=== PATIENT | female | born 1955 | race Hispanic/Latino ===

== ENCOUNTER 2019-05-07 11:21 | Emergency (ER) | payer SELFPAY ==
--- NOTE | 2019-05-07 12:31 | Event Note ---
ED Screening Note Date of service: 05/07/19 Time: 12:26 ED Screening Note: Pt complains of cough and shortness of breath x 1 week cough is nonproductive denies smoking +recent long car ride and right lower leg pain This initial assessment/diagnostic orders/clinical plan/treatment(s) is/are s ubject to change based on patients health status, clinical progression and re- assessment by fellow clinical providers in the ED. Further treatment and workup at subsequent clinical providers discretion. Patient/guardian urged not to elope from the ED as their condition may be serious if not clinically assessed and managed. Initial orders include: Labs CXR lactic acid
--- NOTE | 2019-05-07 15:01 | XRay Report ---
CHEST 2 VIEWS 1254 INDICATION / CLINICAL INFORMATION: cough, fever, hypoxia COMPARISON: 04/08/2012 FINDINGS: SUPPORT DEVICES: None. HEART / MEDIASTINUM: No significant abnormality. LUNGS / PLEURA: Mild diffuse increase in interstitial markings is seen which was not obvious previous ly. I suspect this is simply an interval chronic change from the prior study 7 years ago though possi samuel this could be an acute interstitial infiltrate or edema. Slight atelectasis is seen in the right base. No areas of consolidation are seen. No pleural effusions are noted. No pneumothorax. ADDITIONAL FINDINGS: No significant additional findings. IMPRESSION: Interval increase in interstitial markings as above, probably a chronic development thoug h follow-up is suggested. Signer Name: Sammy Peguero MD Signed: 05/07/2019 2:57 PM Workstation Name: [id number]
[2019-05-07] MEDS ORDERED: ACETAMINOPHEN 325 MG TAB PO ONE (15:25)
[2019-05-07 15:45] LABS: Basophils % (Auto) 0.6 % (0.0-1.8); Eosinophils % (Auto) 0.3 % (0.0-4.3); Hemoglobin 14.1 gm/dl (10.1-14.3); Lymphocytes # (Auto) 0.9 K/mm3 (1.2-5.4); Lymphocytes % (Auto) 19.1 % (13.4-35.0); Mean Corpuscular HGB Conc 33 % (30-34); Mean Corpuscular Volume 89 fl (79-97); Monocytes # (Auto) 0.7 K/mm3 (0.0-0.8); Monocytes % (Auto) 14.3 % (0.0-7.3); Platelet Count 200 K/mm3 (140-440); Red Blood Count 4.85 M/mm3 (3.65-5.03)
[2019-05-07 16:05] LABS: Albumin 3.8 g/dL (3.9-5); Calcium 8.8 mg/dL (8.4-10.2)
[2019-05-08] MEDS ORDERED: cefTRIAXone/NS 1 GM/50 ML 1 GM/50 ML BAG IV ONE (07:13)
[2019-05-08] MEDS ORDERED: ALBUTEROL 2.5 MG/3 ML NEBU IH ONE (07:14)
[2019-05-08] MEDS ORDERED: BENZONATATE 100 MG CAP PO ONE (07:14)
[2019-05-08] MEDS ORDERED: IPRATROPIUM 0.02% NEBU 2.5 ML IH ONE (07:14)
[2019-05-08] MEDS ORDERED: KETOROLAC 30 MG/1 ML INJ IV ONE (07:14)
[2019-05-08] MEDS ORDERED: methylPREDNISolone Sod Succinate 125 MG/2 ML INJ IV ONE (07:14)
[2019-05-08] MEDS ORDERED: FAMOTIDINE 20 MG/2 ML INJ IV ONE (07:14)
--- NOTE | 2019-05-08 07:34 | Emergency Department Report ---
- General Chief Complaint: Upper Respiratory Infection Stated Complaint: COUGH 1 WK Time Seen by Provider: 05/07/19 12:26 Source: patient Mode of arrival: Ambulatory Limitations: Physical Limitation - History of Present Illness Initial Comments: 63-year-old female with no significant past medical history retains a dry cough for the past one week. Patient having subjective fevers at home with shortness of breath. Complaints of chest tightness with shortness of breath and coughing positive wheezing and chest tightness reported. Patient denies recent travel, sick contacts, did not receive a flu shot this season. Patient does not smoke cigarettes. Patient had a pulse ox of 87% on room air during initial triage and complains of 7/10 chest tightness. - Related Data Previous Rx's Medication Instructions Recorded Last Taken Type Ciprofloxacin HCl [Ciprofloxacin 500 mg PO Q12HR #12 tab 05/08/19 Unknown Rx TAB] Oseltamivir [Tamiflu] 75 mg PO BID #10 capsule 05/08/19 Unknown Rx Allergies Allergy/AdvReac Type Severity Reaction Status Date / Time No Known Allergies Allergy Verified 05/07/19 19:46 ED Review of Systems ROS: Stated complaint: COUGH 1 WK Other details as noted in HPI Comment: All other systems reviewed and negative ED Past Medical Hx - Past Medical History Previous Medical History?: No - Surgical History Additional Surgical History: HYSTO - Social History Smoking Status: Never Smoker Substance Use Type: None - Medications Home Medications: Home Medications Medication Instructions Recorded Confirmed Last Taken Type Ciprofloxacin HCl [Ciprofloxacin 500 mg PO Q12HR #12 tab 05/08/19 Unknown Rx TAB] Oseltamivir [Tamiflu] 75 mg PO BID #10 capsule 05/08/19 Unknown Rx ED Physical Exam - General Limitations: Physical Limitation - Other Other exam information: General: No acute distress Head: Atraumatic Eyes: normal appearance ENT: Moist mucous membranes Neck: Normal appearance, no midline tenderness Chest: bilateral expiratory wheezing without crackles or rales CV: Regular rate and rhythm Abdomen: Soft, normal bowel sounds, nontender, nondistended, no rebound or guarding Back: Normal inspection Extremity: Normal inspection, full range of motion, no calf tenderness or leg edema Neuro: Alert O x 3, no facial asymmetry, speech clear, no gross motor sensory deficit Psych: Appropriate behavior Skin: No rash ED Course Vital Signs 05/07/19 05/07/19 05/07/19 12:26 15:26 15:36 Temperature 100 F H 100.9 F H Pulse Rate 73 88 Pulse Rate [ Right Bases] Pulse Rate [ Right Lower Lobe] Respiratory 20 18 18 Rate Respiratory Rate [Right Bases] Respiratory Rate [Right Lower Lobe] Blood Pressure 101/49 Blood Pressure 107/47 [107/47] O2 Sat by Pulse 87 100 Oximetry 05/07/19 05/08/19 05/08/19 16:36 06:31 06:54 Temperature 99.0 F 99.7 F H Pulse Rate 68 65 Pulse Rate [ Right Bases] Pulse Rate [ Right Lower Lobe] Respiratory 18 18 16 Rate Respiratory Rate [Right Bases] Respiratory Rate [Right Lower Lobe] Blood Pressure 114/73 Blood Pressure 122/61 [107/47] O2 Sat by Pulse 90 94 Oximetry 05/08/19 05/08/19 05/08/19 07:39 13:55 14:04 Temperature Pulse Rate 77 76 Pulse Rate [ 80 Right Bases] Pulse Rate [ 77 Right Lower Lobe] Respiratory 15 18 Rate Respiratory 20 Rate [Right Bases] Respiratory 18 Rate [Right Lower Lobe] Blood Pressure Blood Pressure 115/65 122/74 [107/47] O2 Sat by Pulse 91 98 Oximetry ED Medical Decision Making - Lab Data Result diagrams: 05/07/19 15:27 05/07/19 15:27 Lab Results 05/07/19 05/07/19 05/07/19 Range/Units 15:27 15:27 15:27 WBC 4.8 (4.5-11.0) K/mm3 RBC 4.85 (3.65-5.03) M/mm3 Hgb 14.1 (10.1-14.3) gm/dl Hct 43.0 H (30.3-42.9) % MCV 89 (79-97) fl MCH 29 (28-32) pg MCHC 33 (30-34) % RDW 15.0 (13.2-15.2) % Plt Count 200 (140-440) K/mm3 Lymph % (Auto) 19.1 (13.4-35.0) % [place] % (Auto) 14.3 H (0.0-7.3) % Eos % (Auto) 0.3 (0.0-4.3) % Baso % (Auto) 0.6 (0.0-1.8) % Lymph # 0.9 L (1.2-5.4) K/mm3 [place] # 0.7 (0.0-0.8) K/mm3 Eos # 0.0 (0.0-0.4) K/mm3 Baso # 0.0 (0.0-0.1) K/mm3 Seg Neutrophils % 65.7 (40.0-70.0) % Seg Neutrophils # 3.1 (1.8-7.7) K/mm3 Sodium 139 (137-145) mmol/L Potassium 3.8 (3.6-5.0) mmol/L Chloride 101.9 (98-107) mmol/L Carbon Dioxide 22 (22-30) mmol/L Anion Gap 19 mmol/L BUN 15 (7-17) mg/dL Creatinine 1.5 H (0.7-1.2) mg/dL Estimated GFR 35 ml/min BUN/Creatinine Ratio 10 % Glucose 110 H (65-100) mg/dL Lactic Acid 2.00 (0.7-2.0) mmol/L Calcium 8.8 (8.4-10.2) mg/dL Total Bilirubin 0.20 (0.1-1.2) mg/dL AST 19 (5-40) units/L ALT 9 (7-56) units/L Alkaline Phosphatase 64 (35-129) units/L Total Protein 7.0 (6.3-8.2) g/dL Albumin 3.8 L (3.9-5) g/dL Albumin/Globulin Ratio 1.2 % 05/07/ Range/Units 18:21 WBC (4.5-11.0) K/mm3 RBC (3.65-5.03) M/mm3 Hgb (10.1-14.3) gm/dl Hct (30.3-42.9) % MCV (79-97) fl MCH (28-32) pg MCHC (30-34) % RDW (13.2-15.2) % Plt Count (140-440) K/mm3 Lymph % (Auto) (13.4-35.0) % [place] % (Auto) (0.0-7.3) % Eos % (Auto) (0.0-4.3) % Baso % (Auto) (0.0-1.8) % Lymph # (1.2-5.4) K/mm3 [place] # (0.0-0.8) K/mm3 Eos # (0.0-0.4) K/mm3 Baso # (0.0-0.1) K/mm3 Seg Neutrophils % (40.0-70.0) % Seg Neutrophils # (1.8-7.7) K/mm3 Sodium (137-145) mmol/L Potassium (3.6-5.0) mmol/L Chloride (98-107) mmol/L Carbon Dioxide (22-30) mmol/L Anion Gap mmol/L BUN (7-17) mg/dL Creatinine (0.7-1.2) mg/dL Estimated GFR ml/min BUN/Creatinine Ratio % Glucose (65-100) mg/dL Lactic Acid 0.60 L (0.7-2.0) mmol/L Calcium (8.4-10.2) mg/dL Total Bilirubin (0.1-1.2) mg/dL AST (5-40) units/L ALT (7-56) units/L Alkaline Phosphatase (35-129) units/L Total Protein (6.3-8.2) g/dL Albumin (3.9-5) g/dL Albumin/Globulin Ratio % - EKG Data -: EKG Interpreted by Nm EKG shows normal: sinus rhythm, ST-T waves (no stemi) Rate: normal - EKG Data When compared to previous EKG there are: previous EKG unavailable - Radiology Data Radiology results: report reviewed CHEST 2 VIEWS 1254 INDICATION / CLINICAL INFORMATION: cough, fever, hypoxia COMPARISON: 04/08/2012 FINDINGS: SUPPORT DEVICES: None. HEART / MEDIASTINUM: No significant abnormality. LUNGS / PLEURA: Mild diffuse increase in interstitial markings is seen which was not obvious previously. I suspect this is simply an interval chronic change from the prior study 7 years ago though possibly this could be an acute interstitial infiltrate or edema. Slight atelectasis is seen in the right base. No areas of consolidation are seen. No pleural effusions are noted. No pneumothorax. ADDITIONAL FINDINGS: No significant additional findings. IMPRESSION: Interval increase in interstitial markings as above, probably a chronic development though follow-up is suggested. - Medical Decision Making tylenol given for fever Patient received DuoNeb with persistant wheezing mag/solumedrol/rocephin/azithrom to be provided toradol for pain plan to admit due to minimal improvement with meds and need for further tx hospitalist informed blood cultures pending - Differential Diagnosis viral syndrome, pneumonia, bronchitis Critical Care Time: No Critical care attestation.: If time is entered above; I have spent that time in minutes in the direct care of this critically ill patient, excluding procedure time. ED Disposition Clinical Impression: Acute bronchitis, Interstitial pneumonia, Hypoxia Disposition: OP ADMIT IP TO THIS HOSP Is pt being admited?: Yes Does the pt Need Aspirin: No Time of Disposition: 09:30 (Dr Betts/hosp)
[2019-05-08] MEDS ORDERED: MAGNESIUM SULFATE 2 GM/50 ML BAG IV ONE (07:48)
[2019-05-08] MEDS ORDERED: AZITHROMYCIN 500 MG in SODIUM CHLORIDE 0.9% 250ML 250 ML IV ONE (08:00)
[2019-05-08] MEDS ORDERED: AZITHROMYCIN 250 MG TAB PO ONE (08:43)
--- NOTE | 2019-05-08 10:51 | Event Note ---
Date: 05/08/19 63 YO female with no past medical history presents to ED for evaluation. Patient states that she has experienced a dry cough over the past week with subjective fevers at home. Patient states that she has experienced an acute worsening of symptoms over the past 24 hours and presents to ED for evaluation. Patient seen and evaluated in the emergency department and underwent influenza antigen and was found to have influenza B. Patient treated with supportive care and initiated on Tamiflu therapy as well as IV fluid resuscitation therapy and empiric antibiotic therapy. Patient medically optimized and back to usual state of health. Patient discharged home with Tamiflu therapy and prophylactic antibiotic therapy. Patient instructed to follow-up with primary care physician in 3 days if recurrent symptoms. Patient pulse oximetry on room air is 94% after removal of facemask. ED Physical Exam - General Limitations: None General: No acute distress Head: Atraumatic Eyes: normal appearance ENT: Moist mucous membranes Neck: Normal appearance, no midline tenderness Chest: CTA Bilaterally, Normal chest wall expansion, No increased inspiratory effort. CV: Regular rate and rhythm Abdomen: Soft, normal bowel sounds, nontender, nondistended, no rebound or gua rding Back: Normal inspection Extremity: Normal inspection, full range of motion, no calf tenderness or leg edema Neuro: Alert O x 3, no facial asymmetry, speech clear, no gross motor sensory deficit Psych: Appropriate behavior Skin: No rash
[2019-05-08] MEDS ORDERED: SODIUM CHLORIDE 0.9% 1000 ML 1,000 ML IV ONE (10:54)
[2019-05-08] MEDS ORDERED: PSEUDOEPHEDRINE 30 MG TAB PO ONE (11:50)
[2019-05-08] MEDS ORDERED: OSELTAMIVIR 75 MG CAP PO SCH (12:53)
[2019-05-08 15:20] VITALS: BP 121/66
== END 2019-05-08 15:08 | disposition admitted as inpatient to this hospital (09) ==
LOC: ED 11:21 → UNDOADMOB 05-08 09:31 → 3A 05-08 09:31 → ED 05-08 15:08
DX: J02.9 Acute pharyngitis, unspecified (principal); R09.02 Hypoxemia; J84.9 Interstitial pulmonary disease, unspecified
CPT/HCPCS: 36415; 71046; 80053; 82140; 85025; 87040; 87400; 93005; 93010; 94640; 96365; 96367; 96375; 99285; J0696; J1885; J2930; J3475; J7030; 94644; J0456; J7050

== ENCOUNTER 2021-09-29 14:47 | Inpatient (IN) | payer MEDICAID, MEDICARE ==
[2021-09-29] MEDS ORDERED: FUROSEMIDE 40 MG/4 ML INJ IV ONE (16:26)
--- NOTE | 2021-09-29 16:26 | Emergency Department Report ---
ED Shortness of Breath HPI - General Chief Complaint: Dyspnea/Respdistress Stated Complaint: LOW OXYGEN Time Seen by Provider: 09/29/21 15:58 Source: patient Mode of arrival: Wheelchair Limitations: No Limitations - History of Present Illness Initial Comments: Patient is a 66-year-old female presenting with complaint of shortness of breath and chest discomfort. She initially presented to the outpatient check-in area experiencing severe shortness of breath and chest pain for which a CODE BLUE was called. I arrived to find patient awake and alert however appearing severely fatigued. She was transferred to the emergency department for evaluation. States she saw her PCP Wednesday for evaluation of sciatic pain in both of her legs. She reports getting home after the visit and noticing severe swelling in her legs. States she elevated them in bed with reduction in swelling however states the symptoms worsened when she went to work today. The pain in her chest is localized to the center and described as a pressure-like sensation. The pain is nonradiating. Worsened with inhalation. She reports history of heart palpitations however denies history of CAD or CHF. MD Complaint: shortness of breath, chest pain - Related Data Previous Rx's Medication Instructions Recorded Last Taken Type Ciprofloxacin HCl [Ciprofloxacin 500 mg PO Q12HR #12 tab 05/08/19 Unknown Rx TAB] Oseltamivir [Tamiflu] 75 mg PO BID #10 capsule 05/08/19 Unknown Rx Allergies Allergy/AdvReac Type Severity Reaction Status Date / Time No Known Allergies Allergy Verified 05/07/19 19:46 ED Review of Systems ROS: Stated complaint: LOW OXYGEN Other details as noted in HPI Constitutional: denies: chills, fever Respiratory: cough, orthopnea, shortness of breath ED Past Medical Hx - Past Medical History Previous Medical History?: No - Surgical History Past Surgical History?: No Additional Surgical History: HYSTO - Social History Smoking Status: Never Smoker Substance Use Type: None - Medications Home Medications: Home Medications Medication Instructions Recorded Confirmed Last Taken Type Ciprofloxacin HCl [Ciprofloxacin 500 mg PO Q12HR #12 tab 05/08/19 Unknown Rx TAB] Oseltamivir [Tamiflu] 75 mg PO BID #10 capsule 05/08/19 Unknown Rx ED Physical Exam - General Limitations: No Limitations ED Course Vital Signs 09/29/21 14:52 Temperature 99.6 F Pulse Rate 99 H Respiratory 16 Rate Blood Pressure 158/77 [Left] O2 Sat by Pulse 83 L Oximetry Critical care attestation.: If time is entered above; I have spent that time in minutes in the direct care of this critically ill patient, excluding procedure time. ED Disposition Condition: Stable
--- NOTE | 2021-09-29 16:30 | XRay Report ---
CHEST 1 VIEW INDICATION / CLINICAL INFORMATION: Dyspnea. COMPARISON: 05/07/2019. FINDINGS: SUPPORT DEVICES: None. HEART / MEDIASTINUM: Enlarged. LUNGS / PLEURA: Moderate pulmonary vascular congestion. No focal consolidation or definite effusion. No pneumothorax. ADDITIONAL FINDINGS: No significant additional findings. IMPRESSION: Moderate CHF. Signer Name: Ottoniel Tapia MD Signed: 09/29/2021 4:25 PM Workstation Name: [id number]
--- NOTE | 2021-09-29 16:55 | Emergency Department Report ---
HPI - General Chief Complaint: Dyspnea/Respdistress Time Seen by Provider: 09/29/21 15:58 - HPI HPI: 66-year-old morbidly obese female with history of chronic tobacco abuse, patient stating she smokes approximately 1 pack of cigarettes per day, chronic edema of lower extremities times greater than 2 months per her report, hypertension, hyperlipidemia, COPD not on oxygen at home, bipolar disorder, depression, hypothyroidism, sent from her pain management provider's office for evaluation of low oxygen. Patient states that she has seen her primary care doctor over the past few months for persistent swelling in her legs and was told "it is because of your thyroid." She denies feeling any active shortness of breath but does complain of a persistent phlegm productive cough. She denies any chest pain. She also complains of "soreness" to her abdomen. Patient states she is not vaccinated against COVID. No recent prolonged travel history or immobilization. She denies any tooth alcohol or illicit drug usage she denies any known prior history of cardiac problems. She states that she has not been admitted to the hospital within the past 2 to 3 years. Pain 0 out of 10 ED Past Medical Hx - Past Medical History Previous Medical History?: No Hx Hypertension: Yes Hx CVA: No Hx Heart Attack/AMI: No Hx Congestive Heart Failure: No Hx Diabetes: No Hx Deep Vein Thrombosis: No Hx Pulmonary Embolism: No Hx GERD: Yes Hx Liver Disease: No Hx Renal Disease: No Hx of Cancer: No Hx Sickle Cell Disease: No Hx Arthritis: No Hx Headaches / Migraines: No Hx Seizures: No Hx Kidney Stones: No Hx Psychiatric Treatment: Yes Hx Asthma: No Hx COPD: Yes Hx Tuberculosis: No Hx Dementia: No Hx HIV: No - Surgical History Past Surgical History?: No Hx Coronary Stent: No Hx Open Heart Surgery: No Hx Pacemaker: No Hx Internal Defibrillator: No Hx Cholecystectomy: No Hx Appendectomy: No Hx Breast Surgery: No Additional Surgical History: HYSTO - Family History Family history: no significant - Social History Smoking Status: Current Every Day Smoker (1 pack per day) Substance Use Type: None - Medications Home Medications: Home Medications Medication Instructions Recorded Confirmed Last Taken Type Ciprofloxacin HCl [Ciprofloxacin 500 mg PO Q12HR #12 tab 05/08/19 Unknown Rx TAB] Oseltamivir [Tamiflu] 75 mg PO BID #10 capsule 05/08/19 Unknown Rx ED Review of Systems ROS: Stated complaint: LOW OXYGEN Other details as noted in HPI Comment: All other systems reviewed and negative Constitutional: no symptoms reported Eyes: denies: eye pain, eye discharge, vision change ENT: denies: ear pain, throat pain, dental pain, hearing loss, epistaxis, congestion Respiratory: cough, shortness of breath, SOB with exertion. denies: SOB at rest, stridor, wheezing, other Cardiovascular: edema. denies: chest pain, palpitations, dyspnea on exertion, orthopnea, syncope, paroxysmal nocturnal dyspnea Endocrine: no symptoms reported Gastrointestinal: denies: as per HPI, abdominal pain, nausea, vomiting, diarrhea, constipation, hematemesis, melena, hematochezia Genitourinary: denies: urgency, dysuria, frequency, hematuria, discharge Musculoskeletal: other (chronic b/l knee pain ). denies: back pain, joint swelling, arthralgia, myalgia Skin: denies: rash, lesions, change in color, change in hair/nails, pruritus Neurological: denies: as per HPI, headache, weakness, numbness, paresthesias, confusion, abnormal gait Psychiatric: as per HPI, anxiety, depression, other (patient chronic bipolar disorder for which she takes multiple medications). denies: auditory hallucinations, visual hallucinations, homicidal thoughts, suicidal thoughts Hematological/Lymphatic: denies: easy bleeding, easy bruising, swollen glands Physical Exam - Physical Exam Vital Signs: Vital Signs 09/29/21 14:52 Temperature 99.6 F Pulse Rate 99 H Respiratory 16 Rate Blood Pressure 158/77 [Left] O2 Sat by Pulse 83 L Oximetry General: Gen: Morbidly obese female, sitting up on stretcher talking on personal cellular telephone, nasal cannula administering supplemental oxygen in place, no drooling no stridor, no severe respiratory distress, no accessory muscle usage HEENT: Normocephalic atraumatic pupils equally round and reactive to light extraocular muscles intact sclera anicteric Neck: Full range of motion, no midline spinal tenderness palpation, no JVD, no carotid bruits, no nuchal rigidity CVS: S1-S2 regular rate and rhythm with no gallops rubs or murmurs, chest wall nontender Pulmonary: Clear to auscultation bilaterally, no wheezes rales or rhonchi Abdomen: Soft nondistended nontender no guarding or rebound tenderness, no palpable deformities or step-offs, normal active bowel sounds, no hepatosplenomegaly, no pulsatile masses : Deferred Extremities: No cyanosis no clubbing +2 pitting edema to bilateral lower extremity intact distal peripheral pulses, Integumentary: Skin normal, no petechia no purpura no abscess no lacerations no evidence of trauma no evidence of infection Neuro: Patient is awake alert and oriented to person place time situation, mentating well, cranial nerves II through XII intact, no focal neurodeficits, se nsation grossly tact Psych: Calm cooperative, mood affect normal ED Course Vital Signs 09/29/21 14:52 Temperature 99.6 F Pulse Rate 99 H Respiratory 16 Rate Blood Pressure 158/77 [Left] O2 Sat by Pulse 83 L Oximetry ED Medical Decision Making - Lab Data Result diagrams: 09/29/21 16:53 09/29/21 16:53 - EKG Data -: EKG Interpreted by Me EKG shows normal: sinus rhythm Rate: normal - EKG Data When compared to previous EKG there are: previous EKG unavailable Interpretation: other (Right bundle branch block, no ST segment depressions or elevations, no ectopy, no arrhythmia) - Radiology Data Radiology results: report reviewed - Medical Decision Making 66yo morbidly obese female with multiple medical comorbidities presents for evaluation of acute decompensated heart failure and hypoxia. Patient given diuresis in the emergency department with good effect. She has been accepted for admission by , to the hoptalist service for further management. Critical care attestation.: If time is entered above; I have spent that time in minutes in the direct care of this critically ill patient, excluding procedure time. ED Disposition Clinical Impression: Hypoxemia CHF (congestive heart failure) Qualifiers: Heart failure type: right-sided Heart failure chronicity: acute Qualified Code(s): I50.811 - Acute right heart failure Disposition: 09 ADMITTED INPATIENT Is pt being admited?: Yes Does the pt Need Aspirin: Yes Condition: Stable Referrals: PRIMARY CARE, [Primary Care Provider] - 3-5 Days
[2021-09-29 17:09] LABS: Basophils # (Auto) 0.1 K/mm3 (0.0-0.1); Basophils % (Auto) 0.7 % (0.0-1.8); Eosinophils # (Auto) 0.2 K/mm3 (0.0-0.4); Eosinophils % (Auto) 1.1 % (0.0-4.3); Hematocrit 41.6 % (30.3-42.9); Hemoglobin 13.1 gm/dl (10.1-14.3); Lymphocytes # (Auto) 2.1 K/mm3 (1.2-5.4); Lymphocytes % (Auto) 15.2 % (13.4-35.0); Mean Corpuscular HGB Conc 32 % (30-34); Mean Corpuscular Volume 82 fl (79-97); Monocytes # (Auto) 1.1 K/mm3 (0.0-0.8); Monocytes % (Auto) 7.8 % (0.0-7.3); Platelet Count 345 K/mm3 (140-440); Red Blood Count 5.07 M/mm3 (3.65-5.03); Red Cell Distribution Width 19.8 % (13.2-15.2)
[2021-09-29 17:31] LABS: Albumin 3.9 g/dL (3.9-5); Calcium 8.3 mg/dL (8.4-10.2)
[2021-09-29 19:44] LABS: Bilirubin,Urine NEG (Negative); Blood,Urine NEG (Negative); Color,Urine Straw (Yellow); Mucus,Urine FEW /HPF; Protein,Urine <15 mg/dL mg/dL (Negative); Urobilinogen,Urine < 2.0 mg/dL (<2.0); WBC,Urine < 1.0 /HPF (0.0-6.0)
[2021-09-29 19:46] LABS: RBC,Urine < 1.0 /HPF (0.0-6.0)
--- NOTE | 2021-09-29 20:47 | History and Physical Report ---
History of Present Illness Date of examination: 09/29/21 Date of admission: 09/29/2021 Chief complaint: Shortness of breath for 3 to 4 days History of present illness: 66-year-old female with history of hypertension and COPD comes in for increasing shortness of breath and weakness for the last 2 to 3 weeks and more so for the last 3 to 4 days. Patient smokes about 1 pack/day. Patient has swelling of both the legs. Shortness of breath on minimal exertion. Patient not on home oxygen. No fever or chills. No chest pain. Shortness of breath on minimal exertion. No orthopnea. At the time of admission oxygen saturation was around 86 to 88% - Past Medical History --Hypertension: Yes --GERD: Yes - Surgical History --HYSTERECTOMY - Family History --Family history: no significant - Social History --Smoking Status: Current Every Day Smoker (1 pack per day) --Substance Use Type: None - Medications --Home Medications: Home Medications Medication Instructions Recorded Confirmed Last Taken Type Ciprofloxacin HCl [Ciprofloxacin 500 mg PO Q12HR #12 tab 05/08/19 Unknown Rx TAB] Oseltamivir [Tamiflu] 75 mg PO BID #10 capsule 05/08/19 Unknown Rx Review of Systems ROS: Stated complaint: LOW OXYGEN Other details as noted in HPI Comment: All other systems reviewed and negative Constitutional: no symptoms reported Eyes: denies: eye pain, eye discharge, vision change ENT: denies: ear pain, throat pain, dental pain, hearing loss, epistaxis, congestion Respiratory: cough, shortness of breath, SOB with exertion. denies: SOB at rest, stridor, wheezing, other Cardiovascular: edema. denies: chest pain, palpitations, dyspnea on exertion, orthopnea, syncope, paroxysmal nocturnal dyspnea Endocrine: no symptoms reported Gastrointestinal: denies: as per HPI, abdominal pain, nausea, vomiting, diarrhea, constipation, hematemesis, melena, hematochezia Genitourinary: denies: urgency, dysuria, frequency, hematuria, discharge Musculoskeletal: other (chronic b/l knee pain ). denies: back pain, joint swell ing, arthralgia, myalgia Skin: denies: rash, lesions, change in color, change in hair/nails, pruritus Neurological: denies: as per HPI, headache, weakness, numbness, paresthesias, confusion, abnormal gait Psychiatric: as per HPI, anxiety, depression, other (patient chronic bipolar disorder for which she takes multiple medications). denies: auditory hallucinations, visual hallucinations, homicidal thoughts, suicidal thoughts Hematological/Lymphatic: denies: easy bleeding, easy bruising, swollen glands Medications and Allergies Allergies Allergy/AdvReac Type Severity Reaction Status Date / Time No Known Allergies Allergy Verified 05/07/19 19:46 Home Medications Medication Instructions Recorded Confirmed Last Taken Type ARIPiprazole [Aripiprazole] 10 mg PO QDAY 09/29/21 09/29/21 Unknown History AtorvaSTATin [Lipitor] 40 mg PO QHS 09/29/21 09/29/21 Unknown History Cyclobenzaprine [Flexeril] 10 mg PO TID PRN 09/29/21 09/29/21 Unknown History DULoxetine [Cymbalta] 20 mg PO QDAY 09/29/21 09/29/21 Unknown History Furosemide [Lasix] 20 mg PO QDAY 09/29/21 09/29/21 Unknown History Gabapentin [Neurontin] 400 mg PO Q8HR 09/29/21 09/29/21 Unknown History Hydroxyzine HCl [hydrOXYzine] 50 mg PO BID PRN 09/29/21 09/29/21 Unknown History Levothyroxine [Synthroid] 125 mcg PO QAM 09/29/21 09/29/21 Unknown History QUEtiapine [SEROquel] 200 mg PO QHS 09/29/21 09/29/21 Unknown History amLODIPine [Norvasc] 10 mg PO DAILY 09/29/21 09/29/21 Unknown History traZODone [Desyrel] 200 mg PO QHS 09/29/21 09/29/21 Unknown History Exam - Constitutional Vitals: Temp Pulse Resp BP Pulse Ox 99.6 F 99 H 16 158/77 93 09/29/21 14:52 09/29/21 14:52 09/29/21 14:52 09/29/21 14:52 09/29/21 19:30 General appearance: Present: mild distress, well-nourished - EENT Eyes: Present: PERRL ENT: hearing intact, clear oral mucosa - Neck Neck: Present: supple, normal ROM - Respiratory Respiratory effort: normal Respiratory: bilateral: CTA - Cardiovascular Heart rate: 78 Rhythm: regular Heart Sounds: Present: S1 & S2. Absent: rub, click - Extremities Extremities: pulses symmetrical, abnormal (3+ pitting edema both lower extremities) Extremity abnormal: other (As above) Peripheral Pulses: within normal limits - Abdominal General gastrointestinal: Present: soft, non-tender, non-distended, normal bowel sounds Female genitourinary: Present: normal - Integumentary Integumentary: Present: clear, warm, dry - Musculoskeletal Musculoskeletal: gait normal, strength equal bilaterally - Psychiatric Psychiatric: appropriate mood/affect, intact judgment & insight - Neurologic Neurologic: CNII-XII intact, moves all extremities HEART Score - HEART Score History: Moderately suspicious Age: > 65 Risk factors: 1-2 risk factors Troponin: < normal limit - Critical Actions Critical Actions: 4-6 pts:12-16.6% risk of adverse cardiac event. Should be ad mitted Results - Labs CBC & Chem 7: 09/30/21 05:47 09/29/21 16:53 Labs: Laboratory Last Values WBC 13.5 K/mm3 (4.5-11.0) H 09/29/21 16:53 RBC 5.07 M/mm3 (3.65-5.03) H 09/29/21 16:53 Hgb 13.1 gm/dl (10.1-14.3) 09/29/21 16:53 Hct 41.6 % (30.3-42.9) 09/29/21 16:53 MCV 82 fl (79-97) 09/29/21 16:53 MCH 26 pg (28-32) L 09/29/21 16:53 MCHC 32 % (30-34) 09/29/21 16:53 RDW 19.8 % (13.2-15.2) H 09/29/21 16:53 Plt Count 345 K/mm3 (140-440) 09/29/21 16:53 Lymph % (Auto) 15.2 % (13.4-35.0) 09/29/21 16:53 [place] % (Auto) 7.8 % (0.0-7.3) H 09/29/21 16:53 Eos % (Auto) 1.1 % (0.0-4.3) 09/29/21 16:53 Baso % (Auto) 0.7 % (0.0-1.8) 09/29/21 16:53 Lymph # (Auto) 2.1 K/mm3 (1.2-5.4) 09/29/21 16:53 [place] # (Auto) 1.1 K/mm3 (0.0-0.8) H 09/29/21 16:53 Eos # (Auto) 0.2 K/mm3 (0.0-0.4) 09/29/21 16:53 Baso # (Auto) 0.1 K/mm3 (0.0-0.1) 09/29/21 16:53 Seg Neutrophils % 75.2 % (40.0-70.0) H 09/29/21 16:53 Seg Neutrophils # 10.2 K/mm3 (1.8-7.7) H 09/29/21 16:53 Sodium 137 mmol/L (137-145) 09/29/21 16:53 Potassium 4.3 mmol/L (3.6-5.0) 09/29/21 16:53 Chloride 97.8 mmol/L (98-107) L 09/29/21 16:53 Carbon Dioxide 27 mmol/L (22-30) 09/29/21 16:53 Anion Gap 17 mmol/L 09/29/21 16:53 BUN 9 mg/dL (7-17) 09/29/21 16:53 Creatinine 1.2 mg/dL (0.6-1.2) 09/29/21 16:53 Estimated GFR 45 ml/min 09/29/21 16:53 BUN/Creatinine Ratio 8 % 09/29/21 16:53 Glucose 102 mg/dL (65-100) H 09/29/21 16:53 Calcium 8.3 mg/dL (8.4-10.2) L 09/29/21 16:53 Total Bilirubin 0.30 mg/dL (0.1-1.2) 09/29/21 16:53 AST 23 units/L (5-40) 09/29/21 16:53 ALT 7 units/L (7-56) 09/29/21 16:53 Alkaline Phosphatase 90 units/L (35-129) 09/29/21 16:53 NT-Pro-B Natriuret Pep 243.2 pg/mL (0-900) 09/29/21 16:53 Total Protein 6.6 g/dL (6.3-8.2) 09/29/21 16:53 Albumin 3.9 g/dL (3.9-5) 09/29/21 16:53 Albumin/Globulin Ratio 1.4 % 09/29/21 16:53 Urine Color Straw (Yellow) 09/29/21 Unknown Urine Turbidity Clear (Clear) 09/29/21 Unknown Urine pH 6.0 (5.0-7.0) 09/29/21 Unknown Ur Specific [place] 1.004 (1.003-1.030) 09/29/21 Unknown Urine Protein <15 mg/dl mg/dL (Negative) 09/29/21 Unknown Urine Glucose (UA) Neg mg/dL (Negative) 09/29/21 Unknown Urine Ketones Neg mg/dL (Negative) 09/29/21 Unknown Urine Blood Neg (Negative) 09/29/21 Unknown Urine Nitrite Neg (Negative) 09/29/21 Unknown Urine Bilirubin Neg (Negative) 09/29/21 Unknown Urine Urobilinogen < 2.0 mg/dL (<2.0) 09/29/21 Unknown Ur Leukocyte Esterase Neg (Negative) 09/29/21 Unknown Urine WBC (Auto) < 1.0 /HPF (0.0-6.0) 09/29/21 Unknown Urine RBC (Auto) < 1.0 /HPF (0.0-6.0) 09/29/21 Unknown U Epithel Cells (Auto) < 1.0 /HPF (0-13.0) 09/29/21 Unknown Urine Mucus Few /HPF 09/29/21 Unknown Short CBC 09/29/21 09/30/21 Range/Units 16:53 05:47 WBC 13.5 H 13.8 H (4.5-11.0) K/mm3 Hgb 13.1 13.6 (10.1-14.3) gm/dl Hct 41.6 42.7 (30.3-42.9) % Plt Count 345 347 (140-440) K/mm3 BMP 09/29/21 09/30/21 16:53 05:47 Sodium 137 140 Potassium 4.3 4.0 Chloride 97.8 L 100.4 Carbon Dioxide 27 29 BUN 9 10 Creatinine 1.2 1.2 Glucose 102 H 202 H Calcium 8.3 L 8.6 Liver Function 09/29/21 09/30/21 Range/Units 16:53 05:47 Total Bilirubin 0.30 0.40 (0.1-1.2) mg/dL AST 23 10 (5-40) units/L ALT 7 7 (7-56) units/L Alkaline Phosphatase 90 90 (35-129) units/L Albumin 3.9 3.7 L (3.9-5) g/dL Urine 05// Range/Units Unknown Urine Color Straw (Yellow) Urine pH 6.0 (5.0-7.0) Ur Specific [place] 1.004 (1.003-1.030) Urine Protein <15 mg/dl (Negative) mg/dL Urine Glucose (UA) Neg (Negative) mg/dL - Imaging and Cardiology EKG: report reviewed (Sinus rhythm no acute ST-T wave changes) Chest x-ray: report reviewed Imaging and Cardiology: Chest x-ray Moderate pulmonary vascular congestion Final impression Moderate CHF Assessment and Plan Advance Directives: Yes (Full code) VTE prophylaxis?: Chemical Plan of care discussed with patient/family: Yes - Patient Problems (1) Acute respiratory failure with hypoxia and hypercarbia Current Visit: Yes Status: Acute Plan to address problem: Patient has low oxygen saturations and hypercarbia on ABG DuoNebs [id number] and as needed, IV steroids and IV Levaquin (2) COPD with acute exacerbation Current Visit: Yes Status: Acute Plan to address problem: IV steroids, DuoNebs [id number] and as needed and IV antibiotics (3) Cor pulmonale Current Visit: Yes Status: Acute Plan to address problem: Suspect cor pulmonale Pulmonary vascular hypertension secondary to COPD Patient has bilateral lower extremity edema More of the right heart failure than left heart failure BNP is normal Echocardiogram requested for ejection fraction and valve function and wall motion (4) Bilateral lower extremity edema Current Visit: Yes Status: Acute Plan to address problem: Secondary to cor pulmonale IV diuretics for now (5) Hypocalcemia Current Visit: Yes Status: Acute Plan to address problem: Patient initiated on Caltrate plus twice daily (6) Nicotine dependence Current Visit: Yes Status: Chronic Qualifiers: Nicotine product type: cigarettes Plan to address problem: Smoking cessation counseled NicoDerm patch initiated Patient was given alternatives of Chantix, fracture, NicoDerm patch/Nicorette gum (7) DVT prophylaxis Current Visit: Yes Status: Acute Plan to address problem: On anticoagulation GI prophylaxis (8) Advance care planning Current Visit: Yes Status: Acute Plan to address problem: Disease education conducted: Care plan discussed, diagnosis discussed, prognosis discussed. Patient is full code. Patient acknowledged understanding and agreement with care plan. +30 minutes.
[2021-09-29] MEDS ORDERED: ONDANSETRON 4 MG/2 ML INJ IV PRN ×2 (21:29→21:30)
[2021-09-29] MEDS ORDERED: MORPHINE 2 MG/1 ML INJ IV PRN ×2 (21:29→21:30)
[2021-09-29] MEDS ORDERED: ACETAMINOPHEN 325 MG TAB PO PRN ×2 (21:29→21:30)
[2021-09-29] MEDS ORDERED: IPRATROPIUM/ALBUTEROL SULFATE 3 ML AMPUL.NEB IH PRN (21:46)
[2021-09-29] MEDS ORDERED: methylPREDNISolone Sod Succinate 40 MG/1 ML INJ IV SCH (22:00)
[2021-09-29] MEDS ORDERED: SPIRONOLACTONE 25 MG TAB PO SCH (22:00)
[2021-09-29] MEDS ORDERED: ALBUTEROL 2.5 MG/3 ML NEBU IH PRN (22:03)
[2021-09-29] MEDS: HEPARIN 5,000 UNIT/1 ML VIAL SUB-Q SCH (22:35)
[2021-09-29] MEDS: SPIRONOLACTONE 50 MG TAB PO SCH (22:36)
[2021-09-29] MEDS: CALCIUM CARB/VIT D3/MINERALS 600 MG/800 UNITS TAB PO SCH (22:37)
[2021-09-29 23:11] LABS: ABG Base Excess 6.5 mmol/L (-2.0-3.0); ABG HCO3 33.2 mmol/L (20.0-26.0); ABG Methemoglobin 0.5 % (0.0-1.5); ABG Oxygen Saturation 94.3 % (95.0-99.0); ABG PCO2 56.8 mm Hg; ABG PH 7.384 pH Units (7.350-7.450); ABG PO2 63.7 mm Hg (80.0-90.0)
[2021-09-30] MEDS: oxyCODONE /ACETAMINOPHEN 5-325MG TAB PO PRN ×4 (00:09→21:38)
[2021-09-30 06:13] LABS: Hematocrit 42.7 % (30.3-42.9); Hemoglobin 13.6 gm/dl (10.1-14.3); Mean Corpuscular HGB Conc 32 % (30-34); Mean Corpuscular Volume 81 fl (79-97); Platelet Count 347 K/mm3 (140-440); Red Blood Count 5.28 M/mm3 (3.65-5.03); Red Cell Distribution Width 19.6 % (13.2-15.2)
[2021-09-30 06:34] LABS: Albumin 3.7 g/dL (3.9-5); Calcium 8.6 mg/dL (8.4-10.2)
[2021-09-30] MEDS: FUROSEMIDE 40 MG/4 ML INJ IV SCH ×2 (06:47→18:17)
[2021-09-30 07:07] LABS: Basophils % (Manual) 0 % (0.0-1.8); Eosinophils % (Manual) 0 % (0.0-4.3); Monocytes % (Manual) 0 % (0.0-7.3); Total Cells Counted 100
[2021-09-30 07:08] LABS: Anisocytosis 1+
[2021-09-30 07:09] LABS: Ovalocytes 1+
[2021-09-30 07:10] LABS: Platelet Estimate Consistent w Auto; Tear Drop Cells Rare
[2021-09-30] MEDS: IPRATROPIUM/ALBUTEROL SULFATE 3 ML AMPUL.NEB IH SCH ×4 (09:44→20:50)
[2021-09-30] MEDS: NICOTINE 14 MG/24 HR PATCH TD SCH (11:04)
[2021-09-30] MEDS: CALCIUM CARB/VIT D3/MINERALS 600 MG/800 UNITS TAB PO SCH ×2 (11:04→21:38)
[2021-09-30] MEDS: SPIRONOLACTONE 50 MG TAB PO SCH (11:04)
[2021-09-30] MEDS: HEPARIN 5,000 UNIT/1 ML VIAL SUB-Q SCH ×2 (11:04→21:39)
[2021-09-30] MEDS: methylPREDNISolone Sod Succinate 40 MG/1 ML INJ IV SCH (11:05)
--- NOTE | 2021-09-30 13:07 | Consultation ---
History of Present Illness Consult date: 09/30/21 Consult reason: shortness of breath History of present illness: 66-year-old obese female presented with shortness of breath she has a history of hypertension and COPD and swell as a significant history of smoking patient was found to be significantly hypoxemic on admission and admitted for further evaluation and management Past History Past Medical History: COPD, hypertension Past Surgical History: No surgical history Medications and Allergies Allergies Allergy/AdvReac Type Severity Reaction Status Date / Time No Known Allergies Allergy Verified 05/07/19 19:46 Home Medications Medication Instructions Recorded Confirmed Last Taken Type ARIPiprazole [Aripiprazole] 10 mg PO QDAY 09/29/21 09/29/21 Unknown History AtorvaSTATin [Lipitor] 40 mg PO QHS 09/29/21 09/29/21 Unknown History Cyclobenzaprine [Flexeril] 10 mg PO TID PRN 09/29/21 09/29/21 Unknown History DULoxetine [Cymbalta] 20 mg PO QDAY 09/29/21 09/29/21 Unknown History Furosemide [Lasix] 20 mg PO QDAY 09/29/21 09/29/21 Unknown History Gabapentin [Neurontin] 400 mg PO Q8HR 09/29/21 09/29/21 Unknown History Hydroxyzine HCl [hydrOXYzine] 50 mg PO BID PRN 09/29/21 09/29/21 Unknown History Levothyroxine [Synthroid] 125 mcg PO QAM 09/29/21 09/29/21 Unknown History QUEtiapine [SEROquel] 200 mg PO QHS 09/29/21 09/29/21 Unknown History amLODIPine [Norvasc] 10 mg PO DAILY 09/29/21 09/29/21 Unknown History traZODone [Desyrel] 200 mg PO QHS 09/29/21 09/29/21 Unknown History Active Meds: Active Medications Acetaminophen (Acetaminophen 325 Mg Tab) 650 mg PO Q4H PRN PRN Reason: Pain MILD(1-3)/Fever >100.5/[place] Albuterol (Albuterol 2.5 Mg/3 Ml Nebu) 2.5 mg IH Q3HRT PRN PRN Reason: Wheezing Albuterol/Ipratropium (Ipratropium/Albuterol Sulfate 3 Ml Ampul.Neb) 1 ampul IH QIDRT [facility]AY[facility] Last Admin: 09/30/21 09:44 Dose: 1 ampul Furosemide (Furosemide 40 Mg/4 Ml Inj) 40 mg IV 0600,1800 [facility] Last Admin: 09/30/21 06:47 Dose: 40 mg Heparin Sodium (Porcine) (Heparin 5,000 Unit/1 Ml Vial) 5,000 unit SUB-Q Q12HR [facility] Last Admin: 09/30/21 11:04 Dose: 5,000 unit Methylprednisolone Sodium Succinate (Methylprednisolone Sod Succinate 40 Mg/1 Ml Inj) 40 mg IV QDAY [facility] Last Admin: 09/30/21 11:05 Dose: 40 mg Morphine Sulfate (Morphine 2 Mg/1 Ml Inj) 2 mg IV Q4H PRN PRN Reason: Pain, Moderate (4-6) Multivitamins/Minerals (Calcium Carb/Vit D3/Minerals 600 Mg/800 Units Tab) 1 each PO BID [facility] Last Admin: 09/30/21 11:04 Dose: 1 each Nicotine (Nicotine 14 Mg/24 Hr Patch) 14 mg TD QDAY [facility] Last Admin: 09/30/21 11:04 Dose: 14 mg Ondansetron HCl (Ondansetron 4 Mg/2 Ml Inj) 4 mg IV Q8H PRN PRN Reason: Nausea And Vomiting Oxycodone/Acetaminophen (Oxycodone /Acetaminophen 5-325mg Tab) 1 tab PO Q6H PRN PRN Reason: Pain, Moderate (4-6) Last Admin: 09/30/21 08:47 Dose: 1 tab Sodium Chloride (Sodium Chloride 0.9% 10 Ml Flush Syringe) 10 ml IV BID [facility] Last Admin: 09/30/21 11:04 Dose: 10 ml Sodium Chloride (Sodium Chloride 0.9% 10 Ml Flush Syringe) 10 ml IV PRN PRN PRN Reason: LINE FLUSH Spironolactone (Spironolactone 50 Mg Tab) 50 mg PO QDAY [facility] Last Admin: 09/30/21 11:04 Dose: 50 mg Review of Systems Constitutional: weight gain, no fever, no chills Cardiovascular: orthopnea, shortness of breath, no chest pain, no palpitations, no rapid/irregular heart beat, no lightheadedness Respiratory: no excessive sputum, no hemoptysis Gastrointestinal: no abdominal pain, no nausea, no vomiting, no diarrhea Genitourinary Female: no dyspareunia, no dysmenorrhea, no flank pain, no menorrhagia, no urinary frequency Musculoskeletal: no neck stiffness, no neck pain, no shooting arm pain Integumentary: no rash, no pruritis, no redness Neurological: no paralysis, no weakness, no parathesias, no numbness Endocrine: no cold intolerance, no heat intolerance, no polyphagia, no excessive thirst, no polydipsia, no polyuria Hematologic/Lymphatic: no easy bruising, no easy bleeding Allergic/Immunologic: no urticaria, no allergic rhinitis, no wheezing Physical Examination Vital Signs Temp Pulse Resp BP Pulse Ox 99.6 F 99 H 16 158/77 83 L 09/29/21 14:52 09/29/21 14:52 09/29/21 14:52 09/29/21 14:52 09/29/21 14:52 General appearance: no acute distress, obese HEENT: Positive: PERRL, Normocephaly, Mucus Membranes Moist Neck: Positive: neck supple, trachea midline Cardiac: Positive: Regular Rate, S1/S2, PMI, Laterally Displaced. Negative: S3 Lungs: Positive: Rhonchi Neuro: Positive: Grossly Intact Abdomen: Positive: Unremarkable, Soft, Active Bowel Sounds Skin: Negative: Rash Extremities: Present: +1 Edema Results 09/30/21 05:47 09/30/21 05:47 Cardiac Enzymes 09/29/21 09/30/21 Range/Units 16:53 05:47 AST 23 10 (5-40) units/L CBC 09/29/21 09/30/21 Range/Units 16:53 05:47 WBC 13.5 H 13.8 H (4.5-11.0) K/mm3 RBC 5.07 H 5.28 H (3.65-5.03) M/mm3 Hgb 13.1 13.6 (10.1-14.3) gm/dl Hct 41.6 42.7 (30.3-42.9) % Plt Count 345 347 (140-440) K/mm3 Lymph # (Auto) 2.1 (1.2-5.4) K/mm3 [place] # (Auto) 1.1 H (0.0-0.8) K/mm3 Eos # (Auto) 0.2 (0.0-0.4) K/mm3 Baso # (Auto) 0.1 (0.0-0.1) K/mm3 Comprehensive Metabolic Panel 09/29/21 09/30/21 Range/Units 16:53 05:47 Sodium 137 140 (137-145) mmol/L Potassium 4.3 4.0 (3.6-5.0) mmol/L Chloride 97.8 L 100.4 (98-107) mmol/L Carbon Dioxide 27 29 (22-30) mmol/L BUN 9 10 (7-17) mg/dL Creatinine 1.2 1.2 (0.6-1.2) mg/dL Glucose 102 H 202 H (65-100) mg/dL Calcium 8.3 L 8.6 (8.4-10.2) mg/dL AST 23 10 (5-40) units/L ALT 7 7 (7-56) units/L Alkaline Phosphatase 90 90 (35-129) units/L Total Protein 6.6 6.9 (6.3-8.2) g/dL Albumin 3.9 3.7 L (3.9-5) g/dL EKG interpretations - Telemetry EKG Rhythm: Sinus Rhythm Assessment and Plan 1. New onset shortness of breath abnormal resting chest x-ray with elevated WBC count marginal elevation of BNP Rule out community-acquired pneumonia 2. Essential hypertension 3. Chronic obstructive pulmonary disease 4. Morbid obesity Plan. Patient is currently being diuresed successfully echocardiogram shows normal left ventricular size and function. Recommend evaluation pulmonary continue diuresing with furosemide.
--- NOTE | 2021-09-30 13:36 | Progress Note ---
Assessment and Plan Assessment and plan: #Acute respiratory failure with hypoxia and hypercarbia #Possible COPD with acute exacerbation -Patient has low oxygen saturations and hypercarbia on ABG -currently 3L of supplemental O2, no oxygen requirement at home -IV steroids, DuoNebs and IV antibiotics -Pulmonology consulted, assistance appreciated #Heart failure with preserved ejection fraction -Pulmonary vascular congestion seen on CXR; BNP WNL -TTE shows EF 55-60% with mild diastolic dysfunction -continue diuresis, patient having improvement in LE edema #Bilateral lower extremity edema -improving, likely secondary to above -continue IV diuretics for now #Hypocalcemia -Patient initiated on Caltrate plus twice daily #Nicotine dependence #Tobacco cessation counseling -continue nicotine patch -Smoking cessation counseling, supportive care, behavior change counseling, +15 minutes. #Morbid obesity -BMI 47.3% -Counseled patient on the importance of weight loss, incorporating exercise, and dietary changes (lean meats, fresh fruits and vegetables, and water intake). Patient expresses understanding. -Time: +15 min #Advance care planning -Disease education conducted: Care plan discussed, diagnosis discussed, prognosis discussed. Patient is full code. Patient acknowledged understanding and agreement with care plan. +30 minutes. History Interval history: No acute events overnight. Patient reports feeling nervous due to possible diagnosis of heart failure. Denies current chest pain and shortness of breath. Has noticed improvement in shortness of breath while inpatient. Updated about current care plan. Hospitalist Physical - Physical exam Narrative exam: GENERAL: Well-developed well-nourished. Sitting on the side of the bed in no acute distress. HEENT: Nasal cannula at 3 L/min. NECK: Supple. CHEST/LUNGS: Decreased breath sounds bilaterally. HEART/CARDIOVASCULAR: RRR. No murmur, rubs or gallops appreciated. ABDOMEN: +BS. NT/ND. SKIN: RUE patch of erythema and healing blisters. NEURO: No focal motor deficit. Follows all commands. MUSCULOSKELETAL: No joint effusion EXTREMITIES: No cyanosis or clubbing. 1+ pitting edema in BLE PSYCH: Cooperative. - Constitutional Vitals: Temp Pulse Resp BP Pulse Ox 98.2 F 64 16 137/66 94 09/30/21 07:22 09/30/21 13:05 09/30/21 13:05 09/30/21 11:04 09/30/21 12:00 General appearance: Present: no acute distress, obese HEART Score - HEART Score Age: > 65 Risk factors: 1-2 risk factors Troponin: Troponin T < 0.010 ng/mL (0.00-0.029) 09/30/21 05:47 Troponin: < normal limit - Critical Actions Critical Actions: 4-6 pts:12-16.6% risk of adverse cardiac event. Should be admitted Results - Labs CBC & Chem 7: 10/01/21 04:35 09/30/21 05:47 Labs: Laboratory Last Values WBC 13.8 K/mm3 (4.5-11.0) H 09/30/21 05:47 RBC 5.28 M/mm3 (3.65-5.03) H 09/30/21 05:47 Hgb 13.6 gm/dl (10.1-14.3) 09/30/21 05:47 Hct 42.7 % (30.3-42.9) 09/30/21 05:47 MCV 81 fl (79-97) 09/30/21 05:47 MCH 26 pg (28-32) L 09/30/21 05:47 MCHC 32 % (30-34) 09/30/21 05:47 RDW 19.6 % (13.2-15.2) H 09/30/21 05:47 Plt Count 347 K/mm3 (140-440) 09/30/21 05:47 Lymph % (Auto) 15.2 % (13.4-35.0) 09/29/21 16:53 [place] % (Auto) 7.8 % (0.0-7.3) H 09/29/21 16:53 Eos % (Auto) 1.1 % (0.0-4.3) 09/29/21 16:53 Baso % (Auto) 0.7 % (0.0-1.8) 09/29/21 16:53 Lymph # (Auto) 2.1 K/mm3 (1.2-5.4) 09/29/21 16:53 [place] # (Auto) 1.1 K/mm3 (0.0-0.8) H 09/29/21 16:53 Eos # (Auto) 0.2 K/mm3 (0.0-0.4) 09/29/21 16:53 Baso # (Auto) 0.1 K/mm3 (0.0-0.1) 09/29/21 16:53 Add Manual Diff Complete 09/30/21 05:47 Total Counted 100 09/30/21 05:47 Seg Neutrophils % Account Resolution Analyst 09/30/21 05:47 Seg Neuts % (Manual) 98.0 % (40.0-70.0) H 09/30/21 05:47 Band Neutrophils % 0 % 09/30/21 05:47 Lymphocytes % (Manual) 2.0 % (13.4-35.0) L 09/30/21 05:47 Reactive Lymphs % (Man) 0 % 09/30/21 05:47 Monocytes % (Manual) 0 % (0.0-7.3) 09/30/21 05:47 Eosinophils % (Manual) 0 % (0.0-4.3) 09/30/21 05:47 Basophils % (Manual) 0 % (0.0-1.8) 09/30/21 05:47 Metamyelocytes % 0 % 09/30/21 05:47 Myelocytes % 0 % 09/30/21 05:47 Promyelocytes % 0 % 09/30/21 05:47 Blast Cells % 0 % 09/30/21 05:47 Nucleated RBC % Not Reportable 09/30/21 05:47 Seg Neutrophils # 10.2 K/mm3 (1.8-7.7) H 09/29/21 16:53 Seg Neutrophils # Man 13.5 K/mm3 (1.8-7.7) H 09/30/21 05:47 Band Neutrophils # 0.0 K/mm3 09/30/21 05:47 Lymphocytes # (Manual) 0.3 K/mm3 (1.2-5.4) L 09/30/21 05:47 Abs React Lymphs (Man) 0.0 K/mm3 09/30/21 05:47 Monocytes # (Manual) 0.0 K/mm3 (0.0-0.8) 09/30/21 05:47 Eosinophils # (Manual) 0.0 K/mm3 (0.0-0.4) 09/30/21 05:47 Basophils # (Manual) 0.0 K/mm3 (0.0-0.1) 09/30/21 05:47 Metamyelocytes # 0.0 K/mm3 09/30/21 05:47 Myelocytes # 0.0 K/mm3 09/30/21 05:47 Promyelocytes # 0.0 K/mm3 09/30/21 05:47 Blast Cells # 0.0 K/mm3 09/30/21 05:47 WBC Morphology Not Reportable 09/30/21 05:47 Hypersegmented Neuts Not Reportable 09/30/21 05:47 Hyposegmented Neuts Not Reportable 09/30/21 05:47 Hypogranular Neuts Not Reportable 09/30/21 05:47 Smudge Cells Not Reportable 09/30/21 05:47 Toxic Granulation Not Reportable 09/30/21 05:47 Toxic Vacuolation Not Reportable 09/30/21 05:47 Dohle Bodies Not Reportable 09/30/21 05:47 Pelger-Huet Anomaly Not Reportable 09/30/21 05:47 Dl Rods Not Reportable 09/30/21 05:47 Platelet Estimate Consistent w auto 09/30/21 05:47 Clumped Platelets Not Reportable 09/30/21 05:47 Plt Clumps, EDTA Not Reportable 09/30/21 05:47 Large Platelets Not Reportable 09/30/21 05:47 Giant Platelets Not Reportable 09/30/21 05:47 Platelet Satelliting Not Reportable 09/30/21 05:47 Plt Morphology Comment Not Reportable 09/30/21 05:47 RBC Morphology Not Reportable 09/30/21 05:47 Dimorphic RBCs Not Reportable 09/30/21 05:47 Polychromasia Few 09/30/21 05:47 Hypochromasia Not Reportable 09/30/21 05:47 Poikilocytosis Not Reportable 09/30/21 05:47 Anisocytosis 1+ 09/30/21 05:47 Microcytosis Not Reportable 09/30/21 05:47 Macrocytosis Not Reportable 09/30/21 05:47 Spherocytes Not Reportable 09/30/21 05:47 Pappenheimer Bodies Not Reportable 09/30/21 05:47 Sickle Cells Not Reportable 09/30/21 05:47 Target Cells Not Reportable 09/30/21 05:47 Tear Drop Cells Rare 09/30/21 05:47 Ovalocytes 1+ 09/30/21 05:47 Helmet Cells Not Reportable 09/30/21 05:47 Alfaro-Pamplico Bodies Not Reportable 09/30/21 05:47 [place] Rings Not Reportable 09/30/21 05:47 [place] Cells Not Reportable 09/30/21 05:47 Bite Cells Not Reportable 09/30/21 05:47 Crenated Cell Not Reportable 09/30/21 05:47 Elliptocytes Not Reportable 09/30/21 05:47 Acanthocytes (Spur) Not Reportable 09/30/21 05:47 Rouleaux Not Reportable 09/30/21 05:47 Hemoglobin C Crystals Not Reportable 09/30/21 05:47 Schistocytes Not Reportable 09/30/21 05:47 Malaria parasites Not Reportable 09/30/21 05:47 [place] Bodies Not Reportable 09/30/21 05:47 Hem Pathologist Commnt No 09/30/21 05:47 ABG pH 7.384 pH Units (7.350-7.450) 09/29/21 23:04 ABG pCO2 56.8 mm Hg 09/29/21 23:04 ABG pO2 63.7 mm Hg (80.0-90.0) L 09/29/21 23:04 ABG HCO3 33.2 mmol/L (20.0-26.0) H 09/29/21 23:04 ABG O2 Saturation 94.3 % (95.0-99.0) L 09/29/21 23:04 ABG O2 Content 16.4 (0.0-44) 09/29/21 23:04 ABG Base Excess 6.5 mmol/L (-2.0-3.0) H 09/29/21 23:04 ABG Hemoglobin 12.8 gm/dl (12.0-16.0) 09/29/21 23:04 ABG Carboxyhemoglobin 3.0 % (0.0-5.0) 09/29/21 23:04 ABG Methemoglobin 0.5 % (0.0-1.5) 09/29/21 23:04 Oxyhemoglobin 91.0 % (95.0-99.0) L 09/29/21 23:04 FiO2 32 % 09/29/21 23:04 Sodium 140 mmol/L (137-145) 09/30/21 05:47 Potassium 4.0 mmol/L (3.6-5.0) 09/30/21 05:47 Chloride 100.4 mmol/L (98-107) 09/30/21 05:47 Carbon Dioxide 29 mmol/L (22-30) 09/30/21 05:47 Anion Gap 15 mmol/L 09/30/21 05:47 BUN 10 mg/dL (7-17) 09/30/21 05:47 Creatinine 1.2 mg/dL (0.6-1.2) 09/30/21 05:47 Estimated GFR 45 ml/min 09/30/21 05:47 BUN/Creatinine Ratio 8 % 09/30/21 05:47 Glucose 202 mg/dL (65-100) H 09/30/21 05:47 Calcium 8.6 mg/dL (8.4-10.2) 09/30/21 05:47 Total Bilirubin 0.40 mg/dL (0.1-1.2) 09/30/21 05:47 AST 10 units/L (5-40) 09/30/21 05:47 ALT 7 units/L (7-56) 09/30/21 05:47 Alkaline Phosphatase 90 units/L (35-129) 09/30/21 05:47 Troponin T < 0.010 ng/mL (0.00-0.029) 09/30/21 05:47 NT-Pro-B Natriuret Pep 243.2 pg/mL (0-900) 09/29/21 16:53 Total Protein 6.9 g/dL (6.3-8.2) 09/30/21 05:47 Albumin 3.7 g/dL (3.9-5) L 09/30/21 05:47 Albumin/Globulin Ratio 1.2 % 09/30/21 05:47 Urine Color Straw (Yellow) 09/29/21 Unknown Urine Turbidity Clear (Clear) 09/29/21 Unknown Urine pH 6.0 (5.0-7.0) 09/29/21 Unknown Ur Specific [place] 1.004 (1.003-1.030) 09/29/21 Unknown Urine Protein <15 mg/dl mg/dL (Negative) 09/29/21 Unknown Urine Glucose (UA) Neg mg/dL (Negative) 09/29/21 Unknown Urine Ketones Neg mg/dL (Negative) 09/29/21 Unknown Urine Blood Neg (Negative) 09/29/21 Unknown Urine Nitrite Neg (Negative) 09/29/21 Unknown Urine Bilirubin Neg (Negative) 09/29/21 Unknown Urine Urobilinogen < 2.0 mg/dL (<2.0) 09/29/21 Unknown Ur Leukocyte Esterase Neg (Negative) 09/29/21 Unknown Urine WBC (Auto) < 1.0 /HPF (0.0-6.0) 09/29/21 Unknown Urine RBC (Auto) < 1.0 /HPF (0.0-6.0) 09/29/21 Unknown U Epithel Cells (Auto) < 1.0 /HPF (0-13.0) 09/29/21 Unknown Urine Mucus Few /HPF 09/29/21 Unknown [place]/IV: Voiding Method Bedside Commode Active Medications - Current Medications Current Medications: Generic Name Dose Route Start Last Admin Trade Name Freq PRN Reason Stop Dose Admin Acetaminophen 650 mg 09/29/21 21:30 Acetaminophen 325 Mg Tab PO Q4H PRN Pain MILD(1-3)/Fever >100.5/[place] Albuterol 2.5 mg 09/29/21 22:03 Albuterol 2.5 Mg/3 Ml Nebu IH Q3HRT PRN Wheezing Albuterol/Ipratropium 1 ampul 09/30/21 08:00 09/30/21 13:07 Ipratropium/Albuterol Sulfate 3 Ml Ampul.Neb IH 1 ampul QIDRT KAYCE Administration Furosemide 40 mg 09/30/21 06:00 09/30/21 06:47 Furosemide 40 Mg/4 Ml Inj IV 40 mg 0600,1800 KAYCE Administration Heparin Sodium (Porcine) 5,000 unit 09/29/21 22:00 09/30/21 11:04 Heparin 5,000 Unit/1 Ml Vial SUB-Q 5,000 unit Q12HR KAYCE Administration Methylprednisolone Sodium Succinate 40 mg 09/30/21 10:00 09/30/21 11:05 Methylprednisolone Sod Succinate 40 Mg/1 Ml Inj IV 40 mg QDAY KAYCE Administration Morphine Sulfate 2 mg 09/29/21 21:30 Morphine 2 Mg/1 Ml Inj IV Q4H PRN Pain, Moderate (4-6) Multivitamins/Minerals 1 each 09/29/21 22:00 09/30/21 11:04 Calcium Carb/Vit D3/Minerals 600 Mg/800 Units Tab PO 1 each BID KAYCE Administration Nicotine 14 mg 09/30/21 10:00 09/30/21 11:04 Nicotine 14 Mg/24 Hr Patch TD 14 mg QDAY KAYCE Administration Ondansetron HCl 4 mg 09/29/21 21:30 Ondansetron 4 Mg/2 Ml Inj IV Q8H PRN Nausea And Vomiting Oxycodone/Acetaminophen 1 tab 09/29/21 21:30 09/30/21 08:47 Oxycodone /Acetaminophen 5-325mg Tab PO 1 tab Q6H PRN Administration Pain, Moderate (4-6) Sodium Chloride 10 ml 09/29/21 22:00 09/30/21 11:04 Sodium Chloride 0.9% 10 Ml Flush Syringe IV 10 ml BID KAYCE Administration Sodium Chloride 10 ml 09/29/21 21:30 Sodium Chloride 0.9% 10 Ml Flush Syringe IV PRN PRN LINE FLUSH Spironolactone 50 mg 09/29/21 22:00 09/30/21 11:04 Spironolactone 50 Mg Tab PO 50 mg QDAY KAYCE Administration
[2021-09-30] MEDS ORDERED: AZITHROMYCIN 250 MG TAB PO SCH (22:00)
[2021-10-01 05:24] LABS: Hematocrit 43.2 % (30.3-42.9); Hemoglobin 13.6 gm/dl (10.1-14.3); Mean Corpuscular HGB Conc 32 % (30-34); Mean Corpuscular Volume 81 fl (79-97); Platelet Count 335 K/mm3 (140-440); Red Blood Count 5.32 M/mm3 (3.65-5.03); Red Cell Distribution Width 19.8 % (13.2-15.2)
[2021-10-01] MEDS: FUROSEMIDE 40 MG/4 ML INJ IV SCH ×2 (05:35→18:00)
[2021-10-01] MEDS: oxyCODONE /ACETAMINOPHEN 5-325MG TAB PO PRN ×4 (05:35→22:51)
[2021-10-01] MEDS: IPRATROPIUM/ALBUTEROL SULFATE 3 ML AMPUL.NEB IH SCH ×4 (08:45→21:04)
[2021-10-01] MEDS: NICOTINE 14 MG/24 HR PATCH TD SCH (09:46)
[2021-10-01] MEDS: methylPREDNISolone Sod Succinate 40 MG/1 ML INJ IV SCH (09:47)
[2021-10-01] MEDS: SPIRONOLACTONE 50 MG TAB PO SCH (09:50)
[2021-10-01] MEDS: HEPARIN 5,000 UNIT/1 ML VIAL SUB-Q SCH ×2 (09:51→21:35)
[2021-10-01] MEDS: CALCIUM CARB/VIT D3/MINERALS 600 MG/800 UNITS TAB PO SCH ×2 (09:51→21:35)
--- NOTE | 2021-10-01 13:17 | Progress Note ---
Assessment and Plan 1. New onset shortness of breath abnormal resting chest x-ray with elevated WBC count marginal elevation of BNP Rule out community-acquired pneumonia 2. Essential hypertension 3. Chronic obstructive pulmonary disease 4. Morbid obesity Plan. Patient's Echo shows normal LV size and function. Continue IV antibiotics Subjective Date of service: 10/01/21 Interval history: No cardiac symptoms. Objective Vital Signs Temp Pulse Pulse Resp Resp BP BP 10/01/21 11:49 10/01/21 11:09 98.4 F 92 H 17 182/61 10/01/21 10:00 10/01/21 09:50 94 H 10/01/21 08:45 70 17 10/01/21 07:24 97.7 F 91 H 18 135/73 10/01/21 06:35 17 10/01/21 05:35 17 10/01/21 05:14 97.7 F 96 H 17 142/74 10/01/21 00:56 17 09/30/21 23:56 17 09/30/21 23:54 98 F 94 H 18 139/71 09/30/21 22:55 95 H 09/30/21 21:38 17 09/30/21 20:50 92 H 18 09/30/21 20:36 98 F 89 17 142/67 09/30/21 20:17 09/30/21 20:00 93 H 09/30/21 17:00 98 H 150/80 Pulse Ox 10/01/21 11:49 97 10/01/21 11:09 95 10/01/21 10:00 97 10/01/21 09:50 10/01/21 08:45 10/01/21 07:24 97 10/01/21 06:35 10/01/21 05:35 10/01/21 05:14 96 10/01/21 00:56 09/30/21 23:56 09/30/21 23:54 93 09/30/21 22:55 09/30/21 21:38 09/30/21 20:50 95 09/30/21 20:36 94 09/30/21 20:17 94 09/30/21 20:00 09/30/21 17:00 92 - Physical Examination General: Appears Well, No Apparent Distress HEENT: Positive: PERRL, Normocephaly, Mucus Membranes Moist Neck: Positive: neck supple, trachea midline Cardiac: Positive: Regular Rate, S1/S2, PMI, Laterally Displaced. Negative: S3, S4 Lungs: Positive: clear to auscultation, No Wheeze, Rales, Rhonchi Neuro: Positive: Grossly Intact Abdomen: Positive: Unremarkable, Soft, Active Bowel Sounds Skin: Negative: Rash Extremities: Present: +1 Edema - Labs and Meds CBC 10/01/21 Range/Units 04:35 WBC 16.6 H (4.5-11.0) K/mm3 RBC 5.32 H (3.65-5.03) M/mm3 Hgb 13.6 (10.1-14.3) gm/dl Hct 43.2 H (30.3-42.9) % Plt Count 335 (140-440) K/mm3 - Imaging and Cardiology EKG: report reviewed (Sinus rhythm no acute ST-T wave changes) - Telemetry EKG Rhythm: Sinus Rhythm
--- NOTE | 2021-10-01 13:23 | Consultation ---
History of Present Illness Consult date: 10/01/21 Requesting physician: GIANNI LEE Reason for consult: dyspnea, hypoxemia History of present illness: 66 y/o female, tobacco abuser, obese who was at her pain doc for an injection when they aborted the procedure secondary to profound hypoxemia. This is what prompted patient to come to ED. Sat was 83 in ED and hypertensive. CXR was read as CHF and cardiology was consulted. They read her echo but may no comments on right sided pressures. They suggested pulm consult. Patient has never seen a lung doc before. Denies a diagnosis of COPD. She wants to go home. Past History Past Medical History: hypertension, hyperlipidemia, other (obesity) Past Surgical History: No surgical history Social history: smoking Family history: no significant family history Medications and Allergies Allergies Allergy/AdvReac Type Severity Reaction Status Date / Time No Known Allergies Allergy Verified 05/07/19 19:46 Home Medications Medication Instructions Recorded Confirmed Last Taken Type ARIPiprazole [Aripiprazole] 10 mg PO QDAY 09/29/21 09/29/21 Unknown History AtorvaSTATin [Lipitor] 40 mg PO QHS 09/29/21 09/29/21 Unknown History Cyclobenzaprine [Flexeril] 10 mg PO TID PRN 09/29/21 09/29/21 Unknown History DULoxetine [Cymbalta] 20 mg PO QDAY 09/29/21 09/29/21 Unknown History Furosemide [Lasix] 20 mg PO QDAY 09/29/21 09/29/21 Unknown History Gabapentin [Neurontin] 400 mg PO Q8HR 09/29/21 09/29/21 Unknown History Hydroxyzine HCl [hydrOXYzine] 50 mg PO BID PRN 09/29/21 09/29/21 Unknown History Levothyroxine [Synthroid] 125 mcg PO QAM 09/29/21 09/29/21 Unknown History QUEtiapine [SEROquel] 200 mg PO QHS 09/29/21 09/29/21 Unknown History amLODIPine [Norvasc] 10 mg PO DAILY 09/29/21 09/29/21 Unknown History traZODone [Desyrel] 200 mg PO QHS 09/29/21 09/29/21 Unknown History Active Meds: Active Medications Acetaminophen (Acetaminophen 325 Mg Tab) 650 mg PO Q4H PRN PRN Reason: Pain MILD(1-3)/Fever >100.5/[place] Last Admin: 09/30/21 23:56 Dose: 650 mg Albuterol (Albuterol 2.5 Mg/3 Ml Nebu) 2.5 mg IH Q3HRT PRN PRN Reason: Wheezing Albuterol/Ipratropium (Ipratropium/Albuterol Sulfate 3 Ml Ampul.Neb) 1 ampul IH TIDRT [facility] Furosemide (Furosemide 40 Mg/4 Ml Inj) 40 mg IV 0600,1800 [facility] Last Admin: 10/01/21 05:35 Dose: 40 mg Heparin Sodium (Porcine) (Heparin 5,000 Unit/1 Ml Vial) 5,000 unit SUB-Q Q12HR [facility] Last Admin: 10/01/21 09:51 Dose: 5,000 unit Levofloxacin/Dextrose (Levaquin 500mg/100ml) 500 mg in 100 mls @ 100 mls/hr IV Q24H [facility]; Protocol Last Admin: 10/01/21 09:44 Dose: 100 mls/hr Methylprednisolone Sodium Succinate (Methylprednisolone Sod Succinate 40 Mg/1 Ml Inj) 40 mg IV QDAY [facility] Last Admin: 10/01/21 09:47 Dose: 40 mg Morphine Sulfate (Morphine 2 Mg/1 Ml Inj) 2 mg IV Q4H PRN PRN Reason: Pain, Moderate (4-6) Multivitamins/Minerals (Calcium Carb/Vit D3/Minerals 600 Mg/800 Units Tab) 1 each PO BID [facility] Last Admin: 10/01/21 09:51 Dose: 1 each Nicotine (Nicotine 14 Mg/24 Hr Patch) 14 mg TD QDAY [facility] Last Admin: 10/01/21 09:46 Dose: 14 mg Ondansetron HCl (Ondansetron 4 Mg/2 Ml Inj) 4 mg IV Q8H PRN PRN Reason: Nausea And Vomiting Oxycodone/Acetaminophen (Oxycodone /Acetaminophen 5-325mg Tab) 1 tab PO Q6H PRN PRN Reason: Pain, Moderate (4-6) Last Admin: 10/01/21 11:12 Dose: 1 tab Sodium Chloride (Sodium Chloride 0.9% 10 Ml Flush Syringe) 10 ml IV BID [facility] Last Admin: 10/01/21 11:14 Dose: 10 ml Sodium Chloride (Sodium Chloride 0.9% 10 Ml Flush Syringe) 10 ml IV PRN PRN PRN Reason: LINE FLUSH Spironolactone (Spironolactone 50 Mg Tab) 50 mg PO QDAY KAYCE Last Admin: 10/01/21 09:50 Dose: 50 mg Review of Systems All systems: negative Physical Examination Vital signs: Vital Signs Temp Pulse Resp BP Pulse Ox 99.6 F 99 H 16 158/77 83 L 09/29/21 14:52 09/29/21 14:52 09/29/21 14:52 09/29/21 14:52 09/29/21 14:52 General appearance: no acute distress, alert, appears uncomfortable Eyes: non-icteric ENT: oropharynx moist Neck: supple Effort: normal Ascultation: Bilateral: diminished breath sounds Percussion: Bilateral: not dull Tactile fremitus: Bilateral: normal Cardiovascular: regular rate and rhythm Gastrointestinal: normoactive bowel sounds, soft Extremities: edema normal mental status, non-focal exam Results - Laboratory Findings CBC and BMP: 10/01/21 04:35 09/30/21 05:47 ABG ABG pH 7.384 pH Units (7.350-7.450) 09/29/21 23:04 ABG pCO2 56.8 mm Hg 09/29/21 23:04 ABG pO2 63.7 mm Hg (80.0-90.0) L 09/29/21 23:04 ABG O2 Saturation 94.3 % (95.0-99.0) L 09/29/21 23:04 Abnormal lab findings: Abnormal Labs 09/29/21 09/29/21 09/29/21 16:53 16:53 23:04 WBC 13.5 H RBC 5.07 H Hct MCH 26 L RDW 19.8 H [facility] % (Auto) 7.8 H [facility] # (Auto) 1.1 H Seg Neutrophils % 75.2 H Seg Neuts % (Manual) Lymphocytes % (Manual) Seg Neutrophils # 10.2 H Seg Neutrophils # Man Lymphocytes # (Manual) ABG pO2 63.7 L ABG HCO3 33.2 H ABG O2 Saturation 94.3 L ABG Base Excess 6.5 H Oxyhemoglobin 91.0 L Chloride 97.8 L Glucose 102 H Calcium 8.3 L Albumin 09/30/21 09/30/21 10/01/21 05:47 05:47 04:35 WBC 13.8 H 16.6 H RBC 5.28 H 5.32 H Hct 43.2 H MCH 26 L 26 L RDW 19.6 H 19.8 H [facility] % (Auto) [facility] # (Auto) Seg Neutrophils % Seg Neuts % (Manual) 98.0 H Lymphocytes % (Manual) 2.0 L Seg Neutrophils # Seg Neutrophils # Man 13.5 H Lymphocytes # (Manual) 0.3 L ABG pO2 ABG HCO3 ABG O2 Saturation ABG Base Excess Oxyhemoglobin Chloride Glucose 202 H Calcium Albumin 3.7 L - Diagnostic Findings Chest x-ray: image reviewed (cardiomegaly with what bilateral infiltrates.) Assessment and Plan 66 morbidly obese female admitted with acute hypoxic respiratory failure, exact etiology unclear. 1. Echo is not helpful as no mention of pulmonary HTN or right sided pressures. Will ask cards if they can reassess and make comments. 2. Will repeat CXR, if unchanged, will need CT of chest, non contrast to rule ILD 3. Has never seen a lung doc before and per patient has never been told she has COPD, not on oxygen therapy as an outpatient 4. Should be screened for JAMES but this can be done as outpatient 5. Needs ambulatory walk test prior to discharge to assess need for oxygen 6. Smoking cessation. Thank you for this consult.
--- NOTE | 2021-10-01 14:42 | XRay Report ---
CHEST 1 VIEW 10/01/2021 2:22 PM INDICATION / CLINICAL INFORMATION: SHORTNESS OF BREATH. COMPARISON: 09/29/2021 FINDINGS: SUPPORT DEVICES: None. HEART / MEDIASTINUM: Cardiomegaly LUNGS / PLEURA: Bilateral increased pulmonary vascularity with interstitial prominence and congestion No pneumothorax. ADDITIONAL FINDINGS: No significant additional findings. IMPRESSION: Moderate CHF identified. Signer Name: Robbin Jewell MD Signed: 10/01/2021 2:37 PM Workstation Name: [id number]
--- NOTE | 2021-10-01 15:07 | Progress Note ---
Assessment and Plan Assessment and plan: #Acute respiratory failure with hypoxia and hypercarbia #Possible COPD with acute exacerbation -Patient has low oxygen saturations and hypercarbia on ABG -currently 4L of supplemental O2, no oxygen requirement at home -home O2 walk evaluation -CXR with minimal improvement, non-contrast CT ordered to rule out ILD -IV steroids, DuoNebs and IV antibiotics -Pulmonology consulted, assistance appreciated #Heart failure with preserved ejection fraction -Pulmonary vascular congestion seen on CXR; BNP WNL -TTE shows EF 55-60% with mild diastolic dysfunction -continue diuresis, patient having improvement in LE edema #Bilateral lower extremity edema -improving, likely secondary to above -continue IV diuretics for now #Hypocalcemia -Patient initiated on Caltrate plus twice daily #Nicotine dependence #Tobacco cessation counseling -continue nicotine patch -Smoking cessation counseling, supportive care, behavior change counseling, +15 minutes. #Morbid obesity -BMI 47.3% -Counseled patient on the importance of weight loss, incorporating exercise, and dietary changes (lean meats, fresh fruits and vegetables, and water intake). Patient expresses understanding. Time: +15 min -due to body habitus may have underlying sleep apnea, will need outpatient sleep study. #Advance care planning -Disease education conducted: Care plan discussed, diagnosis discussed, prognosis discussed. Patient is full code. Patient acknowledged understanding and agreement with care plan. +30 minutes. History Interval history: No acute events overnight. Patient reports continued improvement in her lower extremity edema. Discussed Pulmonology consult and current care plan. She has no complaints at this time. Hospitalist Physical - Physical exam Narrative exam: GENERAL: Well-developed well-nourished. Sitting on the side of the bed in no acute distress. HEENT: Nasal cannula at 4 L/min. NECK: Supple. CHEST/LUNGS: Decreased breath sounds bilaterally. HEART/CARDIOVASCULAR: RRR. No murmur, rubs or gallops appreciated. ABDOMEN: +BS. NT/ND. SKIN: RUE patch of erythema and healing blisters. NEURO: No focal motor deficit. Follows all commands. MUSCULOSKELETAL: No joint effusion EXTREMITIES: No cyanosis or clubbing. improved pitting edema in BLE PSYCH: Cooperative. - Constitutional Vitals: Temp Pulse Resp BP Pulse Ox 98.4 F 92 H 17 182/61 97 10/01/21 11:09 10/01/21 11:09 10/01/21 11:09 10/01/21 11:09 10/01/21 11:49 General appearance: Present: no acute distress, obese HEART Score - HEART Score Age: > 65 Risk factors: 1-2 risk factors Troponin: Troponin T < 0.010 ng/mL (0.00-0.029) 09/30/21 19:00 Troponin: < normal limit - Critical Actions Critical Actions: 4-6 pts:12-16.6% risk of adverse cardiac event. Should be ad mitted Results - Labs CBC & Chem 7: 10/01/21 04:35 09/30/21 05:47 Labs: Laboratory Last Values WBC 16.6 K/mm3 (4.5-11.0) H 10/01/21 04:35 RBC 5.32 M/mm3 (3.65-5.03) H 10/01/21 04:35 Hgb 13.6 gm/dl (10.1-14.3) 10/01/21 04:35 Hct 43.2 % (30.3-42.9) H 10/01/21 04:35 MCV 81 fl (79-97) 10/01/21 04:35 MCH 26 pg (28-32) L 10/01/21 04:35 MCHC 32 % (30-34) 10/01/21 04:35 RDW 19.8 % (13.2-15.2) H 10/01/21 04:35 Plt Count 335 K/mm3 (140-440) 10/01/21 04:35 Lymph % (Auto) 15.2 % (13.4-35.0) 09/29/21 16:53 [place] % (Auto) 7.8 % (0.0-7.3) H 09/29/21 16:53 Eos % (Auto) 1.1 % (0.0-4.3) 09/29/21 16:53 Baso % (Auto) 0.7 % (0.0-1.8) 09/29/21 16:53 Lymph # (Auto) 2.1 K/mm3 (1.2-5.4) 09/29/21 16:53 [place] # (Auto) 1.1 K/mm3 (0.0-0.8) H 09/29/21 16:53 Eos # (Auto) 0.2 K/mm3 (0.0-0.4) 09/29/21 16:53 Baso # (Auto) 0.1 K/mm3 (0.0-0.1) 09/29/21 16:53 Add Manual Diff Complete 09/30/21 05:47 Total Counted 100 09/30/21 05:47 Seg Neutrophils % Rn Shift Mgr 09/30/21 05:47 Seg Neuts % (Manual) 98.0 % (40.0-70.0) H 09/30/21 05:47 Band Neutrophils % 0 % 09/30/21 05:47 Lymphocytes % (Manual) 2.0 % (13.4-35.0) L 09/30/21 05:47 Reactive Lymphs % (Man) 0 % 09/30/21 05:47 Monocytes % (Manual) 0 % (0.0-7.3) 09/30/21 05:47 Eosinophils % (Manual) 0 % (0.0-4.3) 09/30/21 05:47 Basophils % (Manual) 0 % (0.0-1.8) 09/30/21 05:47 Metamyelocytes % 0 % 09/30/21 05:47 Myelocytes % 0 % 09/30/21 05:47 Promyelocytes % 0 % 09/30/21 05:47 Blast Cells % 0 % 09/30/21 05:47 Nucleated RBC % Not Reportable 09/30/21 05:47 Seg Neutrophils # 10.2 K/mm3 (1.8-7.7) H 09/29/21 16:53 Seg Neutrophils # Man 13.5 K/mm3 (1.8-7.7) H 09/30/21 05:47 Band Neutrophils # 0.0 K/mm3 09/30/21 05:47 Lymphocytes # (Manual) 0.3 K/mm3 (1.2-5.4) L 09/30/21 05:47 Abs React Lymphs (Man) 0.0 K/mm3 09/30/21 05:47 Monocytes # (Manual) 0.0 K/mm3 (0.0-0.8) 09/30/21 05:47 Eosinophils # (Manual) 0.0 K/mm3 (0.0-0.4) 09/30/21 05:47 Basophils # (Manual) 0.0 K/mm3 (0.0-0.1) 09/30/21 05:47 Metamyelocytes # 0.0 K/mm3 09/30/21 05:47 Myelocytes # 0.0 K/mm3 09/30/21 05:47 Promyelocytes # 0.0 K/mm3 09/30/21 05:47 Blast Cells # 0.0 K/mm3 09/30/21 05:47 WBC Morphology Not Reportable 09/30/21 05:47 Hypersegmented Neuts Not Reportable 09/30/21 05:47 Hyposegmented Neuts Not Reportable 09/30/21 05:47 Hypogranular Neuts Not Reportable 09/30/21 05:47 Smudge Cells Not Reportable 09/30/21 05:47 Toxic Granulation Not Reportable 09/30/21 05:47 Toxic Vacuolation Not Reportable 09/30/21 05:47 Dohle Bodies Not Reportable 09/30/21 05:47 Pelger-Huet Anomaly Not Reportable 09/30/21 05:47 Dl Rods Not Reportable 09/30/21 05:47 Platelet Estimate Consistent w auto 09/30/21 05:47 Clumped Platelets Not Reportable 09/30/21 05:47 Plt Clumps, EDTA Not Reportable 09/30/21 05:47 Large Platelets Not Reportable 09/30/21 05:47 Giant Platelets Not Reportable 09/30/21 05:47 Platelet Satelliting Not Reportable 09/30/21 05:47 Plt Morphology Comment Not Reportable 09/30/21 05:47 RBC Morphology Not Reportable 09/30/21 05:47 Dimorphic RBCs Not Reportable 09/30/21 05:47 Polychromasia Few 09/30/21 05:47 Hypochromasia Not Reportable 09/30/21 05:47 Poikilocytosis Not Reportable 09/30/21 05:47 Anisocytosis 1+ 09/30/21 05:47 Microcytosis Not Reportable 09/30/21 05:47 Macrocytosis Not Reportable 09/30/21 05:47 Spherocytes Not Reportable 09/30/21 05:47 Pappenheimer Bodies Not Reportable 09/30/21 05:47 Sickle Cells Not Reportable 09/30/21 05:47 Target Cells Not Reportable 09/30/21 05:47 Tear Drop Cells Rare 09/30/21 05:47 Ovalocytes 1+ 09/30/21 05:47 Helmet Cells Not Reportable 09/30/21 05:47 Alfaro-Baden Bodies Not Reportable 09/30/21 05:47 [place] Rings Not Reportable 09/30/21 05:47 Eli Cells Not Reportable 09/30/21 05:47 Bite Cells Not Reportable 09/30/21 05:47 Crenated Cell Not Reportable 09/30/21 05:47 Elliptocytes Not Reportable 09/30/21 05:47 Acanthocytes (Spur) Not Reportable 09/30/21 05:47 Rouleaux Not Reportable 09/30/21 05:47 Hemoglobin C Crystals Not Reportable 09/30/21 05:47 Schistocytes Not Reportable 09/30/21 05:47 Malaria parasites Not Reportable 09/30/21 05:47 [place] Bodies Not Reportable 09/30/21 05:47 Hem Pathologist Commnt No 09/30/21 05:47 ABG pH 7.384 pH Units (7.350-7.450) 09/29/21 23:04 ABG pCO2 56.8 mm Hg 09/29/21 23:04 ABG pO2 63.7 mm Hg (80.0-90.0) L 09/29/21 23:04 ABG HCO3 33.2 mmol/L (20.0-26.0) H 09/29/21 23:04 ABG O2 Saturation 94.3 % (95.0-99.0) L 09/29/21 23:04 ABG O2 Content 16.4 (0.0-44) 09/29/21 23:04 ABG Base Excess 6.5 mmol/L (-2.0-3.0) H 09/29/21 23:04 ABG Hemoglobin 12.8 gm/dl (12.0-16.0) 09/29/21 23:04 ABG Carboxyhemoglobin 3.0 % (0.0-5.0) 09/29/21 23:04 ABG Methemoglobin 0.5 % (0.0-1.5) 09/29/21 23:04 Oxyhemoglobin 91.0 % (95.0-99.0) L 09/29/21 23:04 FiO2 32 % 09/29/21 23:04 Sodium 140 mmol/L (137-145) 09/30/21 05:47 Potassium 4.0 mmol/L (3.6-5.0) 09/30/21 05:47 Chloride 100.4 mmol/L (98-107) 09/30/21 05:47 Carbon Dioxide 29 mmol/L (22-30) 09/30/21 05:47 Anion Gap 15 mmol/L 09/30/21 05:47 BUN 10 mg/dL (7-17) 09/30/21 05:47 Creatinine 1.2 mg/dL (0.6-1.2) 09/30/21 05:47 Estimated GFR 45 ml/min 09/30/21 05:47 BUN/Creatinine Ratio 8 % 09/30/21 05:47 Glucose 202 mg/dL (65-100) H 09/30/21 05:47 Calcium 8.6 mg/dL (8.4-10.2) 09/30/21 05:47 Total Bilirubin 0.40 mg/dL (0.1-1.2) 09/30/21 05:47 AST 10 units/L (5-40) 09/30/21 05:47 ALT 7 units/L (7-56) 09/30/21 05:47 Alkaline Phosphatase 90 units/L (35-129) 09/30/21 05:47 Troponin T < 0.010 ng/mL (0.00-0.029) 09/30/21 19:00 NT-Pro-B Natriuret Pep 243.2 pg/mL (0-900) 09/29/21 16:53 Total Protein 6.9 g/dL (6.3-8.2) 09/30/21 05:47 Albumin 3.7 g/dL (3.9-5) L 09/30/21 05:47 Albumin/Globulin Ratio 1.2 % 09/30/21 05:47 Urine Color Straw (Yellow) 09/29/21 Unknown Urine Turbidity Clear (Clear) 09/29/21 Unknown Urine pH 6.0 (5.0-7.0) 09/29/21 Unknown Ur Specific [place] 1.004 (1.003-1.030) 09/29/21 Unknown Urine Protein <15 mg/dl mg/dL (Negative) 09/29/21 Unknown Urine Glucose (UA) Neg mg/dL (Negative) 09/29/21 Unknown Urine Ketones Neg mg/dL (Negative) 09/29/21 Unknown Urine Blood Neg (Negative) 09/29/21 Unknown Urine Nitrite Neg (Negative) 09/29/21 Unknown Urine Bilirubin Neg (Negative) 09/29/21 Unknown Urine Urobilinogen < 2.0 mg/dL (<2.0) 09/29/21 Unknown Ur Leukocyte Esterase Neg (Negative) 09/29/21 Unknown Urine WBC (Auto) < 1.0 /HPF (0.0-6.0) 09/29/21 Unknown Urine RBC (Auto) < 1.0 /HPF (0.0-6.0) 09/29/21 Unknown U Epithel Cells (Auto) < 1.0 /HPF (0-13.0) 09/29/21 Unknown Urine Mucus Few /HPF 09/29/21 Unknown Bradley/IV: Voiding Method Toilet Active Medications - Current Medications Current Medications: Generic Name Dose Route Start Last Admin Trade Name Freq PRN Reason Stop Dose Admin Acetaminophen 650 mg 09/29/21 21:30 09/30/21 23:56 Acetaminophen 325 Mg Tab PO 650 mg Q4H PRN Administration Pain MILD(1-3)/Fever >100.5/[place] Albuterol 2.5 mg 09/29/21 22:03 Albuterol 2.5 Mg/3 Ml Nebu IH Q3HRT PRN Wheezing Albuterol/Ipratropium 1 ampul 10/01/21 14:00 Ipratropium/Albuterol Sulfate 3 Ml Ampul.Neb IH TIDRT KAYCE Furosemide 40 mg 09/30/21 06:00 10/01/21 05:35 Furosemide 40 Mg/4 Ml Inj IV 40 mg 0600,1800 KAYCE Administration Heparin Sodium (Porcine) 5,000 unit 09/29/21 22:00 10/01/21 09:51 Heparin 5,000 Unit/1 Ml Vial SUB-Q 5,000 unit Q12HR KAYCE Administration Levofloxacin/Dextrose 500 mg in 100 mls @ 100 mls/hr 10/01/21 10:00 10/01/21 09:44 Levaquin 500mg/100ml IV 100 mls/hr Q24H KAYCE Administration Protocol Methylprednisolone Sodium Succinate 40 mg 09/30/21 10:00 10/01/21 09:47 Methylprednisolone Sod Succinate 40 Mg/1 Ml Inj IV 40 mg QDAY KAYCE Administration Morphine Sulfate 2 mg 09/29/21 21:30 Morphine 2 Mg/1 Ml Inj IV Q4H PRN Pain, Moderate (4-6) Multivitamins/Minerals 1 each 09/29/21 22:00 10/01/21 09:51 Calcium Carb/Vit D3/Minerals 600 Mg/800 Units Tab PO 1 each BID KAYCE Administration Nicotine 14 mg 09/30/21 10:00 10/01/21 09:46 Nicotine 14 Mg/24 Hr Patch TD 14 mg QDAY KAYCE Administration Ondansetron HCl 4 mg 09/29/21 21:30 Ondansetron 4 Mg/2 Ml Inj IV Q8H PRN Nausea And Vomiting Oxycodone/Acetaminophen 1 tab 09/29/21 21:30 10/01/21 11:12 Oxycodone /Acetaminophen 5-325mg Tab PO 1 tab Q6H PRN Administration Pain, Moderate (4-6) Sodium Chloride 10 ml 09/29/21 22:00 10/01/21 11:14 Sodium Chloride 0.9% 10 Ml Flush Syringe IV 10 ml BID KAYCE Administration Sodium Chloride 10 ml 09/29/21 21:30 Sodium Chloride 0.9% 10 Ml Flush Syringe IV PRN PRN LINE FLUSH Spironolactone 50 mg 09/29/21 22:00 10/01/21 09:50 Spironolactone 50 Mg Tab PO 50 mg QDAY KAYCE Administration Nutrition/Malnutrition Assess - Dietary Evaluation Nutrition/Malnutrition Findings: Nutrition Notes Start: 09/30/21 17:55 Freq: Status: Active Protocol: Document 09/30/21 17:55 YOANA (Rec: 09/30/21 18:15 YOANA [id number]) Nutrition Notes 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 Current Diet Cardiac -chopped meats- Diet ( since B 09/30). Labs/Tests 09/30: Glu 202. Pertinent Medications 09/30: Nutritionally unremarkable. 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 No reports available on Pt's PO intake of meals at the time , will assess at F/U. Pt on Nasal Cannula, O2 saturation @ 94%, according to Physical Assessment History notes. No reports on Difficulty Chewing are mentioned in the chart, I will prescribe mechanical modificatrion of food (Chopped Meats) to support any Pt's possible need . Percent of energy/protein needs met: Prescribed Cardiac -chopped meats- Diet provides for energy/protein needs (2,230 Kcal/85 g) during LOS. Burn Absent Trauma Absent GI Symptoms None Food Allergy No Skin Integrity/Comment R-UE wound. Minimum of two criteria No #1 Nutrition Diagnosis Biting/Chewing (masticatory) difficulty Etiology Uncertain. As Evidenced by Signs and Symptoms RN request for Difficulty Chewing assessment. Is patient on ventilator? No Is Patient Ambulatory and/or Out of Bed Yes REE-([place]. or-ambulatory/OOB) [ 2301.000 [id number]] Kcal/Kg value to use for calculation 12 Approximate Energy Requirements Using 1500 kcal/Kg Calculation Used for Recommendations Kcal/kg Additional Notes Protein: 1-1.2 g/Kg AdjBW; 90- 108 g/day. Fluids: 1 ml/Kcal, or as per MD. Nutrition Intervention Change Diet Order: Modify to Cardiac -chopped meats- Diet. Goal #1 Facilitate PO intake of meals with elemental, textural, or mechanical modification during LOS. Goal #2 Maintain body weight within +/ -3% of admission body weight during LOS. Follow-Up By: 10/07/21 Additional Comments Continue monitoring food tolerance, %PO intake of meals , and BM.
--- NOTE | 2021-10-01 16:12 | Cat Scan Report ---
CT CHEST WITHOUT CONTRAST INDICATION / CLINICAL INFORMATION: hypoxia. TECHNIQUE: Axial CT images were obtained through the chest without contrast. All CT scans at this [facility] ation are performed using CT dose reduction for ALARA by means of automated exposure control. COMPARISON: Chest x-ray performed earlier today FINDINGS: HEART: There is borderline to mild cardiomegaly. No pericardial effusion. CORONARY ARTERY CALCIFICATION: Moderate to severe THORACIC AORTA: Mild atherosclerotic calcification without acute abnormality. MEDIASTINUM / KARLI: No significant abnormality. PLEURA: No pleural effusion. No pneumothorax. LUNGS: No acute air space or interstitial disease. There is minor linear scarring or atelectasis in t he lingula. No suspicious pulmonary lesion is detected. ADDITIONAL FINDINGS: None. UPPER ABDOMEN: No significant abnormality. SKELETAL SYSTEM: Mild thoracic spondylosis. No fracture or suspicious bony lesion. IMPRESSION: Borderline to mild cardiomegaly. Lungs clear. No acute cardiopulmonary process is appreciated. Signer Name: Hai Mckinney Jr, MD Signed: 10/01/2021 4:08 PM Workstation Name: [id number]
[2021-10-02] MEDS: FUROSEMIDE 40 MG/4 ML INJ IV SCH (05:15)
[2021-10-02] MEDS: oxyCODONE /ACETAMINOPHEN 5-325MG TAB PO PRN ×2 (05:15→10:01)
[2021-10-02 05:44] LABS: Mean Corpuscular HGB Conc 31 % (30-34); Mean Corpuscular Volume 83 fl (79-97); Platelet Count 395 K/mm3 (140-440); Red Blood Count 5.81 M/mm3 (3.65-5.03); Red Cell Distribution Width 19.8 % (13.2-15.2)
[2021-10-02 05:47] LABS: Hemoglobin 14.9 gm/dl (10.1-14.3)
[2021-10-02] MEDS: IPRATROPIUM/ALBUTEROL SULFATE 3 ML AMPUL.NEB IH SCH ×2 (08:12→13:46)
[2021-10-02] MEDS: NICOTINE 14 MG/24 HR PATCH TD SCH (09:24)
[2021-10-02] MEDS: HEPARIN 5,000 UNIT/1 ML VIAL SUB-Q SCH (09:52)
[2021-10-02] MEDS ORDERED: NON-FORMULARY EACH (Lamotrigine [Lamictal] 200 MG Tablet) PO SCH (10:00)
[2021-10-02] MEDS ORDERED: FUROSEMIDE 20 MG TAB PO SCH (10:00)
[2021-10-02] MEDS ORDERED: DULoxetine 30 MG CAP PO SCH (10:00)
[2021-10-02] MEDS ORDERED: predniSONE 20 MG TAB PO SCH (10:00)
[2021-10-02] MEDS ORDERED: ARIPiprazole 10 MG TAB PO SCH (10:00)
[2021-10-02] MEDS: SPIRONOLACTONE 50 MG TAB PO SCH (10:01)
--- NOTE | 2021-10-02 10:02 | Progress Note ---
Assessment and Plan 66 morbidly obese female admitted with acute hypoxic respiratory failure, exact etiology unclear. 10/02/21: Continue to wean FiO2 for sats >88%. Started on Prednisone by IMS this morning. Hopefully cards will reassess echo to look for pulmonary HTN. Needs to be screened for JAMES and outpatient PSG. Suggest checking thyroid studies as well. Smoking cessation. Ambulatory pulse ox prior to discharge to see if oxygen is needed. Abnormalities seen on CXR maybe in the subcutaneous tissues? Will continue to follow. Needs full PFT as outpatient. 1. Echo is not helpful as no mention of pulmonary HTN or right sided pressures. Will ask cards if they can reassess and make comments. 2. Will repeat CXR, if unchanged, will need CT of chest, non contrast to rule ILD 3. Has never seen a lung doc before and per patient has never been told she has COPD, not on oxygen therapy as an outpatient 4. Should be screened for JAMES but this can be done as outpatient 5. Needs ambulatory walk test prior to discharge to assess need for oxygen 6. Smoking cessation. Thank you for this consult. Subjective Date of service: 10/02/21 Interval history: Patient ended up having CT of chest as CXR was unchanged. Amazingly, CT scan of chest is clear. There isn't any structural evidence of COPD either. Objective Vital Signs - 12hr 10/01/21 10/01/21 10/02/21 22:51 23:51 00:05 Temperature Pulse Rate 97 H Pulse Rate [ Bilateral] Respiratory 17 17 Rate Respiratory Rate [Bilateral ] Blood Pressure Blood Pressure [Left] O2 Sat by Pulse Oximetry 10/02/21 10/02/21 10/02/21 04:00 04:50 05:15 Temperature 98.1 F Pulse Rate 88 82 Pulse Rate [ Bilateral] Respiratory 18 17 Rate Respiratory Rate [Bilateral ] Blood Pressure Blood Pressure 132/79 [Left] O2 Sat by Pulse 95 Oximetry 10/02/21 10/02/21 10/02/21 06:15 08:26 08:28 Temperature Pulse Rate Pulse Rate [ 87 Bilateral] Respiratory 17 Rate Respiratory 20 Rate [Bilateral ] Blood Pressure Blood Pressure [Left] O2 Sat by Pulse 97 Oximetry 10/02/21 08:38 Temperature 97.8 F Pulse Rate 92 H Pulse Rate [ Bilateral] Respiratory 18 Rate Respiratory Rate [Bilateral ] Blood Pressure 146/74 Blood Pressure [Left] O2 Sat by Pulse 93 Oximetry Constitutional: no acute distress, alert, appears uncomfortable Eyes: non-icteric ENT: oropharynx moist Neck: supple Effort: normal Ascultation: Bilateral: diminished breath sounds Percussion: Bilateral: not dull Tactile fremitus: Bilateral: normal Cardiovascular: regular rate and rhythm Gastrointestinal: normoactive bowel sounds, soft Extremities: edema Neurologic: normal mental status, non-focal exam CBC and BMP: 10/02/21 05:01 09/30/21 05:47 ABG, PT/INR, D-dimer: ABG ABG pH 7.384 pH Units (7.350-7.450) 09/29/21 23:04 ABG pCO2 56.8 mm Hg 09/29/21 23:04 ABG pO2 63.7 mm Hg (80.0-90.0) L 09/29/21 23:04 ABG O2 Saturation 94.3 % (95.0-99.0) L 09/29/21 23:04 Abnormal lab findings: Abnormal Labs 09/29/21 09/29/21 09/29/21 16:53 16:53 23:04 WBC 13.5 H RBC 5.07 H Hgb Hct MCH 26 L RDW 19.8 H King % (Auto) 7.8 H King # (Auto) 1.1 H Seg Neutrophils % 75.2 H Seg Neuts % (Manual) Lymphocytes % (Manual) Seg Neutrophils # 10.2 H Seg Neutrophils # Man Lymphocytes # (Manual) ABG pO2 63.7 L ABG HCO3 33.2 H ABG O2 Saturation 94.3 L ABG Base Excess 6.5 H Oxyhemoglobin 91.0 L Chloride 97.8 L Glucose 102 H Calcium 8.3 L Albumin 09/30/21 09/30/21 10/01/21 05:47 05:47 04:35 WBC 13.8 H 16.6 H RBC 5.28 H 5.32 H Hgb Hct 43.2 H MCH 26 L 26 L RDW 19.6 H 19.8 H King % (Auto) King # (Auto) Seg Neutrophils % Seg Neuts % (Manual) 98.0 H Lymphocytes % (Manual) 2.0 L Seg Neutrophils # Seg Neutrophils # Man 13.5 H Lymphocytes # (Manual) 0.3 L ABG pO2 ABG HCO3 ABG O2 Saturation ABG Base Excess Oxyhemoglobin Chloride Glucose 202 H Calcium Albumin 3.7 L 10/02/21 05:01 WBC 19.9 H RBC 5.81 H Hgb 14.9 H Hct 48.0 H MCH 26 L RDW 19.8 H King % (Auto) King # (Auto) Seg Neutrophils % Seg Neuts % (Manual) Lymphocytes % (Manual) Seg Neutrophils # Seg Neutrophils # Man Lymphocytes # (Manual) ABG pO2 ABG HCO3 ABG O2 Saturation ABG Base Excess Oxyhemoglobin Chloride Glucose Calcium Albumin
[2021-10-02] MEDS: CALCIUM CARB/VIT D3/MINERALS 600 MG/800 UNITS TAB PO SCH (10:03)
--- NOTE | 2021-10-02 10:10 | Discharge Summary ---
Providers - Providers Date of Admission: 09/29/21 21:29 Date of discharge: 10/02/21 Attending physician: GIANNI LEE MD 09/29/21 21:30 Consult to Physician [CONS] Routine Comment: Consulting Provider: ROGER FOX Physician Instructions: Reason For Exam: CHF and cor pulmonale 09/30/21 13:33 Consult to Physician [CONS] Routine Comment: Consulting Provider: JANE HOOKER Physician Instructions: Reason For Exam: respiratory failure Primary care physician: SENIOR SPEECH PATHOLOGIST Hospitalization Reason for admission: respiratory failure Condition: Stable Hospital course: 66-year-old female with history of hypertension, tobacco abuse and COPD who presented with shortness of breath and weakness. She was found to be hypoxic and was admitted for acute hypoxic respiratory failure. She was empirically treated for COPD and exacerbation. Echocardiogram showed LVEF of 55 to 60% with mild diastolic dysfunction. Cardiology and pulmonology were consulted. CT of the chest was negative for acute cardiopulmonary processes. She was evaluated for home oxygen and was discharged home with supplemental oxygen. Disposition: 01 HOME / SELF CARE / HOMELESS Final Discharge Diagnosis (Prints w/discharge instructions): Acute respiratory failure with hypoxia and hypercarbia. Possible COPD exacerbation. acute Heart failure with preserved ejection fraction. Bilateral lower extremity edema. Hypocalcemia. Nicotine dependence. Morbid obesity Time spent for discharge: 35 minutes Core Measure Documentation - Palliative Care Palliative Care/ Comfort Measures: Not Applicable - Core Measures Any of the following diagnoses?: heart failure - Heart Failure Discharge Requirements AYLIN/ARB for LVSD if EF <40%: Not Applicable Beta aravind at discharge: No Reason for no beta aravind on DC: COPD Exam - Physical Exam Narrative exam: GENERAL: Well-developed well-nourished. Sitting on the side of the bed in no acute distress. HEENT: Nasal cannula at 4 L/min. CHEST/LUNGS: Decreased breath sounds bilaterally. HEART/CARDIOVASCULAR: RRR. No murmur, rubs or gallops appreciated. ABDOMEN: +BS. NT/ND. SKIN: RUE patch of erythema and healing blisters. NEURO: No focal motor deficit. Follows all commands. EXTREMITIES: No cyanosis or clubbing. improved pitting edema in BLE PSYCH: Cooperative. - Constitutional Vitals: Temp Pulse Resp BP Pulse Ox 97.8 F 92 H 18 146/74 93 10/02/21 08:38 10/02/21 08:38 10/02/21 08:38 10/02/21 08:38 10/02/21 08:38 Plan Care Plan Goals: These follow-up with your primary care provider. Please asked for referral for an outpatient sleep study. Please quit smoking as soon as possible. Make sure that you are not smoking while you are actively using oxygen. Please purchase a pulse oximeter from your local pharmacy to check your oxygen levels while at home. Continue to use the oxygen as long as your pulse oximetry levels are remaining less than 88%. Follow up with: PRIMARY CARE, [Primary Care Provider] - 3-5 Days Prescriptions: Spironolactone [Aldactone] 50 mg PO QDAY 30 Days #30 tablet predniSONE [Deltasone] 40 mg PO QDAY 1 Days #2 tablet Nicotine [Habitrol] 14 mg TD QDAY 21 Days #21 patch Furosemide [Lasix TAB] 40 mg PO QDAY 30 Days #60 tablet levoFLOXacin [Levaquin TAB] 500 mg PO QDAY 3 Days #3 tablet
[2021-10-02] MEDS ORDERED: FUROSEMIDE 40 MG TAB PO SCH (11:00)
[2021-10-02] MEDS ORDERED: lamoTRIgine 100 MG TAB PO SCH (11:00)
[2021-10-02] MEDS ORDERED: DULoxetine 20 MG CAP PO SCH (12:00)
[2021-10-02] MEDS ORDERED: BACITRACIN ZINC OINT 28.4 GM TP PRN (12:00)
[2021-10-02] MEDS: GABAPENTIN 400 MG CAP PO SCH ×2 (12:00→14:00)
--- NOTE | 2021-10-02 13:14 | Progress Note ---
Assessment and Plan - Patient Problems (1) CHF (congestive heart failure) Current Visit: Yes Status: Acute Qualifiers: Heart failure type: right-sided Heart failure chronicity: acute Qualified Code(s): I50.811 - Acute right heart failure (2) COPD with acute exacerbation Current Visit: Yes Status: Acute Subjective Date of service: 10/02/21 Interval history: SOB/EDEMA BETTER Objective Vital Signs Temp Pulse Pulse Resp Resp BP BP 10/02/21 11:19 10/02/21 08:38 97.8 F 92 H 18 146/74 10/02/21 08:28 10/02/21 08:26 87 20 10/02/21 06:15 17 10/02/21 05:15 17 10/02/21 04:50 98.1 F 82 18 132/79 10/02/21 04:00 88 10/02/21 00:05 97 H 10/01/21 23:51 17 10/01/21 22:51 17 10/01/21 21:33 98.1 F 93 H 18 144/77 10/01/21 21:05 10/01/21 21:04 86 18 10/01/21 20:38 10/01/21 20:35 95 H 10/01/21 18:24 17 10/01/21 16:00 96 H 10/01/21 15:16 88 17 10/01/21 15:04 97.3 F L 84 17 172/78 Pulse Ox 10/02/21 11:19 95 10/02/21 08:38 93 10/02/21 08:28 97 10/02/21 08:26 10/02/21 06:15 10/02/21 05:15 10/02/21 04:50 95 10/02/21 04:00 10/02/21 00:05 10/01/21 23:51 10/01/21 22:51 10/01/21 21:33 97 10/01/21 21:05 96 10/01/21 21:04 10/01/21 20:38 94 10/01/21 20:35 10/01/21 18:24 10/01/21 16:00 10/01/21 15:16 10/01/21 15:04 94 - Physical Examination General: Appears Well, No Apparent Distress HEENT: Positive: PERRL, Normocephaly, Mucus Membranes Moist Neck: Positive: neck supple, trachea midline Cardiac: Positive: Reg Rate and Rhythm Lungs: Positive: clear to auscultation Neuro: Positive: Grossly Intact Abdomen: Positive: Unremarkable, Soft, Active Bowel Sounds Skin: Negative: Rash Extremities: Present: edema (TR) - Labs and Meds CBC 10/02/21 Range/Units 05:01 WBC 19.9 H (4.5-11.0) K/mm3 RBC 5.81 H (3.65-5.03) M/mm3 Hgb 14.9 H (10.1-14.3) gm/dl Hct 48.0 H (30.3-42.9) % Plt Count 395 (140-440) K/mm3 - Imaging and Cardiology EKG: report reviewed (Sinus rhythm no acute ST-T wave changes)
[2021-10-02 13:23] VITALS: BP 151/81
[2021-10-03] MEDS ORDERED: LEVOTHYROXINE 125 MCG TAB PO SCH (06:00)
--- NOTE | 2021-10-03 09:14 | Electrocardiograph Report ---
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
== END 2021-10-02 16:00 | disposition home or self-care (01) | DRG 189 ==
LOC: ED 14:47 → 4A 21:29
PROVIDERS: ADMIT Internal Medicine; ATTEND Student in an Organized Health Care Education/Training Program
PROC: 4A033R1 Measurement of Arterial Saturation, Peripheral, Percutaneous Approach (ICD-10-PCS; principal; 2021-09-29)
DX: J96.01 Acute respiratory failure with hypoxia (principal); I11.0 Hypertensive heart disease with heart failure; J96.02 Acute respiratory failure with hypercapnia; J18.9 Pneumonia, unspecified organism; J44.1 Chronic obstructive pulmonary disease with (acute) exacerbation; E78.5 Hyperlipidemia, unspecified; E66.01 Morbid (severe) obesity due to excess calories; J44.0 Chronic obstructive pulmonary disease with (acute) lower respiratory infection; E83.51 Hypocalcemia; I27.81 Cor pulmonale (chronic); I50.33 Acute on chronic diastolic (congestive) heart failure; F17.210 Nicotine dependence, cigarettes, uncomplicated; I27.20 Pulmonary hypertension, unspecified; G47.33 Obstructive sleep apnea (adult) (pediatric); K21.9 Gastro-esophageal reflux disease without esophagitis; F31.9 Bipolar disorder, unspecified; E03.9 Hypothyroidism, unspecified; Z79.899 Other long term (current) drug therapy; Z90.710 Acquired absence of both cervix and uterus; Z71.6 Tobacco abuse counseling; Z71.3 Dietary counseling and surveillance; Z68.42 Body mass index [BMI] 45.0-49.9, adult
CPT/HCPCS: 36415; 36600; 71045; 71250; 80053; 81001; 82803; 83880; 84484; 85007; 85025; 85027; 93005; 93306; 94640; 94760; 99406; G0378; C8929; J1644; J1940; J1956; J2920